=== PATIENT | female | born 1965 | race Caucasian/White ===

== ENCOUNTER 2022-09-28 08:54 | Outpatient (OUT) | payer OTHER, SELFPAY ==
--- NOTE | 2022-09-28 08:59 | ECG_ITS ---
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
[2022-09-28 10:22] LABS: Basophils Absolute Auto 0.1 10^3/uL (0.0-0.1); Basophils Percent Auto 1.1 % (0.2-2.0); Eosinophils Absolute Auto 0.2 10^3/uL (0.0-0.7); Eosinophils Percent Auto 2.7 % (0.9-7.0); Hemoglobin 13.1 g/dL (12.0-16.0); Immature Granulocytes Abs Auto 0.01 10^3/uL (0.00-0.03); Immature Granulocytes Pct Auto 0.2 % (0.0-0.5); Lymphocytes Absolute Auto 1.6 10^3/uL (1.2-3.8); Lymphocytes Percent Auto 29.1 % (20.5-60.0); Mean Corpuscular HGB Conc 32.8 g/dL (29.9-35.2); Mean Corpuscular Hemoglobin 28.7 pg (26.7-34.0); Mean Corpuscular Volume 87.7 fL (81.0-99.0); Mean Platelet Volume 10.6 fL (9.5-13.5); Monocytes Absolute Auto 0.3 10^3/uL (0.3-0.8); Monocytes Percent Auto 5.7 % (1.7-12.0); Neutrophils Absolute Auto 3.3 10^3/uL (1.4-6.5); Neutrophils Percent Auto 61.2 % (43.0-75.0); Platelet Count 228 10^3/uL (150-450); Red Blood Count 4.56 10^6/uL (4.20-5.40); White Blood Count 5.5 10^3/uL (4.0-11.0)
[2022-09-28 10:39] LABS: INR 0.97; Partial Thromboplastin Time 25.2 sec (22.3-36.2); Prothrombin Time 10.3 sec (9.0-11.6)
== END 2022-09-28 08:55 | disposition home or self-care (01) ==
PROVIDERS: Otolaryngology; PCP Internal Medicine
DX: Z01.812 Encounter for preprocedural laboratory examination (principal); Z01.810 Encounter for preprocedural cardiovascular examination; J34.2 Deviated nasal septum; J34.3 Hypertrophy of nasal turbinates; J34.89 Other specified disorders of nose and nasal sinuses
CPT/HCPCS: 85025; 85610; 85730; 93005

== ENCOUNTER 2022-09-28 12:30 | Emergency (ER) | payer OTHER, SELFPAY ==
--- NOTE | 2022-09-28 12:46 | ECG_ITS ---
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
--- NOTE | 2022-09-28 12:50 | ED_ITS ---
HPI - General Adult General Chief complaint: Recheck/Abnormal Lab/Rx Stated complaint: SENT OVER BY DR CANCHOLA Time Seen by Provider: 09/28/22 12:46 History of Present Illness HPI narrative: Patient is a 57-year-old female who is presenting to the Emergency Room. The recommendation Dr. canchola because of abnormal EKG Testing. Patient was noted to have T-wave inversion in the precordial leads. Patient was sent to the Emergency Room by PCP Dr. canchoal to have cardiac testing. Patient is completely asymptomatic. Patient has a brother in his 50s a had a heart attack. Patient is a nonsmoker, no cocaine use. Patient takes no medication for cholesterol, diabetes, or blood pressure. Patient is asymptomatic. Patient is due to have sinus surgery next Wednesday by Dr. Canchola. Patient is only here because her PCP told her to come to the Emergency Room for evaluation. . All systems are negative except as noted/marked. All systems reviewed and otherwise negative. . Nurses note and vital signs reviewed and patient is not hypoxic. General: The patient appears well and in no apparent distress. Patient is resting comfortably on cart. Patient is not toxic, lethargic, or listless Skin: Warm, dry, no pallor noted. There is no rash noted. No petechiae, purpura. Head: Normocephalic, atraumatic Eye: Normal conjunctiva, no drainage, EOMI. PERRL Ears, Nose, Mouth, and Throat: oral mucosa is moist. Nares patent. Mouth without vesicles. Cardiovascular: Regular Rate and Rhythm, no murmur, gallop, rub Respiratory: Patient is in no distress, no accessory muscle use, lungs are clear to auscultation, no wheezing, rales or rhonchi Back: non-tender, GI: soft, no tenderness Musculoskeletal: Patient has full range of motion of all of the extremities, no motor, sensory, or focal neurological deficits Neurological: A&O x3, normal speech Psychiatric: Cooperative Related Data Home Medications Medication Instructions Recorded Confirmed alprazolam 1 mg tablet 1 mg PO TID 09/28/22 09/28/22 cetirizine 10 mg tablet (24Hour 5 mg PO DAILY 09/28/22 09/28/22 Allergy) fluticasone furoate 27.5 2 spray intranasal DAILY 09/28/22 09/28/22 mcg/actuation nasal spray,suspension (Flonase Sensimist) hydroxyzine pamoate 25 mg capsule 25 mg PO .Q12 09/28/22 09/28/22 lansoprazole 30 mg capsule,delayed 30 mg PO DAILY 09/28/22 09/28/22 release (Prevacid) lisinopril 10 mg tablet 10 mg PO BID 09/28/22 09/28/22 pravastatin 40 mg tablet 20 mg PO .EVERY EVENING 09/28/22 09/28/22 sucralfate 1 gram tablet 1 g PO DAILY PRN GASTRITIS 09/28/22 09/28/22 Allergies Allergy/AdvReac Type Severity Reaction Status Date / Time No Known Drug Allergies Allergy Verified 09/28/22 09:19 [facility] Medical History (Updated 09/28/22 @ 15:05 by Stanislaw Sims MD) Surgical History (Updated 09/28/22 @ 09:39 by Karla Sweet) Family History (Updated 09/28/22 @ 09:41 by Karla Sweet) Other Family history of diabetes mellitus Family history of myocardial infarction Family history of prostate cancer Family history of stroke Myeloma Social History (Updated 09/28/22 @ 09:33 by Karla Sweet) Within the past year, how often did you have a drink containing alcohol: 2-4 times a month Within the past year, how many standard drinks containing alcohol did you have on a typical day: 3 or 4 Smoking status: Never smoker Non-prescribed substance use: denies use 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 Highest level of school completed/degree received: Bachelor's degree Exam Constitutional Vital Signs, click to edit/add: Last Vital Signs Temp 97.6 F 09/28/22 13:04 Pulse 63 09/28/22 13:04 Resp 16 09/28/22 13:04 BP 141/94 H 09/28/22 13:04 Pulse Ox 98 09/28/22 13:04 O2 Del Method Nasal Cannula 09/28/22 13:04 Course Vital Signs Vital signs: Vital Signs Temperature 97.6 F 09/28/22 13:04 Pulse Rate 63 09/28/22 13:04 Respiratory Rate 16 09/28/22 13:04 Blood Pressure 141/94 H 09/28/22 13:04 Pulse Oximetry 98 09/28/22 13:04 Oxygen Delivery Method Nasal Cannula 09/28/22 13:04 Temperature 97.6 F 09/28/22 13:04 Pulse Rate 63 09/28/22 13:04 Respiratory Rate 16 09/28/22 13:04 Blood Pressure 141/94 H 09/28/22 13:04 Pulse Oximetry 98 09/28/22 13:04 Oxygen Delivery Method Nasal Cannula 09/28/22 13:04 Medical Decision Making MDM Narrative Medical decision making narrative: Patient chest x-ray and lab work showed no acute findings. Patient does have T- wave inversion noted to the precordial leads, patient is completely asymptomatic. Patient is discharged. I did speak to Dr. canchola after test results and discharge. Patient is hoping that her sinus surgery is not canceled Wednesday. Dr. canchola will perform additional cardiac testing is needed. No questions at discharge. Patient may commentts that nobody had updated her on her test results, or the nature of the Emergency Room volume since she returned back from x-ray. Blameless apologies were given. Patient was very pleasant. Lab Data Lab results reviewed: Yes I reviewed the patient's lab results Labs: Lab Results 09/28/22 Range/Units 12:00 WBC 7.0 (4.0-11.0) 10^3/uL RBC 4.90 (4.20-5.40) 10^6/uL Hgb 14.1 (12.0-16.0) g/dL Hct 42.4 (36.0-48.0) % MCV 86.5 (81.0-99.0) fL MCH 28.8 (26.7-34.0) pg MCHC 33.3 (29.9-35.2) g/dL RDW 12.1 (11.0-15.0) % Plt Count 277 (150-450) 10^3/uL MPV 10.9 (9.5-13.5) fL Neut % (Auto) 56.0 (43.0-75.0) % Lymph % (Auto) 33.9 (20.5-60.0) % [place] % (Auto) 5.9 (1.7-12.0) % Eos % (Auto) 3.0 (0.9-7.0) % Baso % (Auto) 0.9 (0.2-2.0) % Neut # (Auto) 3.9 (1.4-6.5) 10^3/uL Lymph # (Auto) 2.4 (1.2-3.8) 10^3/uL [place] # (Auto) 0.4 (0.3-0.8) 10^3/uL Eos # (Auto) 0.2 (0.0-0.7) 10^3/uL Baso # (Auto) 0.1 (0.0-0.1) 10^3/uL Abs Immat Gran (auto) 0.02 (0.00-0.03) 10^3/uL Imm/Tot Granulo (auto) 0.3 (0.0-0.5) % Sodium 137 (136-145) mmol/L Potassium 3.5 (3.5-5.1) mmol/L Chloride 103 (98-107) mmol/L Carbon Dioxide 30.4 (21.0-32.0) mmol/L Anion Gap 7.1 BUN 11.0 (7.0-18.0) mg/dL Creatinine 0.81 (0.55-1.02) mg/dL Est GFR ( Amer) >60 (>=60) Est GFR (Non-Af Amer) >60 (>=60) BUN/Creatinine Ratio 13.6 Glucose 100 (74-106) mg/dL Calcium 9.1 (8.5-10.1) mg/dL Total Bilirubin 0.3 (0.2-1.0) mg/dL AST 17 (15-37) U/L ALT 25 (14-59) U/L Alkaline Phosphatase 111 (46-116) U/L Troponin I High Sens 31.6 (4.0-51.3) pg/mL NT-Pro-B Natriuret Pep 145.0 (<=900.0) pg/mL Total Protein 8.2 (6.4-8.2) g/dL Albumin 4.2 (3.4-5.0) g/dL Globulin 4.0 g/dL Albumin/Globulin Ratio 1.0 ECG Data Attestation: I personally reviewed and interpreted this ECG as follows: Interpretation: EKG interpretation. Sinus bradycardia of 46 beats a minute. Normal axis deviation. PVC noted. Nonspecific ST changes, T-wave inversion in V4, V5, QTC of 375. Discharge Plan Discharge Chief Complaint: Recheck/Abnormal Lab/Rx Clinical Impression: Acute electrocardiogram changes Patient Disposition: Home, Self-Care Condition: Good Mode of Transportation: Private Vehicle Prescriptions / Home Meds: No Action lisinopril 10 mg tablet 10 mg PO BID sucralfate 1 gram tablet 1 g PO DAILY PRN (Reason: GASTRITIS) pravastatin 40 mg tablet 20 mg PO .EVERY EVENING hydroxyzine pamoate 25 mg capsule 25 mg PO .Q12 cetirizine [24Hour Allergy] 10 mg tablet 5 mg PO DAILY Flonase Sensimist 27.5 mcg/actuation spray,suspension 2 spray intranasal DAILY Rx Instructions: into each nostril alprazolam 1 mg tablet 1 mg PO TID lansoprazole [Prevacid] 30 mg capsule,delayed release(DR/EC) 30 mg PO DAILY Instructions: Electrophysiology Study (DC) Additional Instructions: follow-up with Dr. Canchola for additional outpatient testing . A copy of her EKG was given to you. Stand Alone Forms: Portal Instructions Referrals: Ulysses Canchola DO [Primary Care Provider] - 1 week Discharge Date/Time: 09/28/22 15:16
[2022-09-28 13:04] VITALS: BP 141/94; PULSE 63; RESP 16; TEMP 36.4; O2SAT 98; BMI 30.7
[2022-09-28 13:07] LABS: Basophils Absolute Auto 0.1 10^3/uL (0.0-0.1); Basophils Percent Auto 0.9 % (0.2-2.0); Eosinophils Absolute Auto 0.2 10^3/uL (0.0-0.7); Hematocrit 42.4 % (36.0-48.0); Hemoglobin 14.1 g/dL (12.0-16.0); Immature Granulocytes Abs Auto 0.02 10^3/uL (0.00-0.03); Immature Granulocytes Pct Auto 0.3 % (0.0-0.5); Lymphocytes Absolute Auto 2.4 10^3/uL (1.2-3.8); Lymphocytes Percent Auto 33.9 % (20.5-60.0); Mean Corpuscular HGB Conc 33.3 g/dL (29.9-35.2); Mean Corpuscular Hemoglobin 28.8 pg (26.7-34.0); Mean Corpuscular Volume 86.5 fL (81.0-99.0); Mean Platelet Volume 10.9 fL (9.5-13.5); Monocytes Absolute Auto 0.4 10^3/uL (0.3-0.8); Monocytes Percent Auto 5.9 % (1.7-12.0); Neutrophils Absolute Auto 3.9 10^3/uL (1.4-6.5); Platelet Count 277 10^3/uL (150-450); Red Cell Distribution Width 12.1 % (11.0-15.0)
--- NOTE | 2022-09-28 13:11 | XR_ITS ---
The [address] [address] Patient Name: SIERRA GONZALES MRN: [id number] date: 1965 Sex: F Assigned Patient Location: ER Current Patient Location: ER Accession/Order Number: [id number] Exam Date: 09/28/2022 13:25 Report Date: 09/28/2022 13:54 At the request of: FERNANDEZ PRABHAKAR Procedure: XR chest 2V EXAMINATION: XR chest 2V HISTORY: possible abnormal ekg ; presurgical testing, abnormal EKG COMPARISON: No relevant comparison available. FINDINGS: LUNGS: No significant pulmonary parenchymal abnormalities. VASCULATURE: No increased pulmonary vasculature. PLEURA: No pneumothorax, effusion, or pleural thickening. CARDIAC: No cardiomegaly or cardiac silhouette abnormality. MEDIASTINUM: No visible mass or adenopathy. BONES: No fracture or visible bone lesion. OTHER: Negative. XR/XR chest 2V IMPRESSION: 1. Normal chest x-ray. Electronically authenticated by: MICKI ORTEGA Date: 09/28/2022 13:54
[2022-09-28 13:28] LABS: Alanine Aminotransferase 25 U/L (14-59); Albumin Level 4.2 g/dL (3.4-5.0); Alkaline Phosphatase 111 U/L (46-116); Anion Gap 7.1; Aspartate Amino Transferase 17 U/L (15-37); BUN Creatinine Ratio 13.6; Bilirubin Total 0.3 mg/dL (0.2-1.0); Calcium 9.1 mg/dL (8.5-10.1); Carbon Dioxide 30.4 mmol/L (21.0-32.0); Chloride 103 mmol/L (98-107); Estimated GFR (African America >60 (>=60); Estimated GFR (Non-African Ame >60 (>=60); Glucose 100 mg/dL (74-106); Potassium 3.5 mmol/L (3.5-5.1); Sodium 137 mmol/L (136-145); Total Protein 8.2 g/dL (6.4-8.2)
[2022-09-28 13:35] LABS: Troponin I High Sensitivity 31.6 pg/mL (4.0-51.3)
== END 2022-09-28 15:16 | disposition home or self-care (01) ==
PROVIDERS: Emergency Provider Emergency Medicine; PCP Internal Medicine
DX: Z01.812 Encounter for preprocedural laboratory examination (principal); Z01.810 Encounter for preprocedural cardiovascular examination; J34.2 Deviated nasal septum; J34.3 Hypertrophy of nasal turbinates; J34.89 Other specified disorders of nose and nasal sinuses; R94.31 Abnormal electrocardiogram [ECG] [EKG]; Z79.899 Other long term (current) drug therapy
CPT/HCPCS: 36415; 71046; 80048; 80053; 83880; 84484; 85025; 85610; 85730; 93005; 99285

== ENCOUNTER 2022-10-01 10:51 | Outpatient (OUT) | payer OTHER, SELFPAY ==
--- NOTE | 2022-10-01 10:45 | NM_ITS ---
Patient: SIERRA GONZALES Exam Date: 10/01/2022 : 1965 Gender:F Ordering : DR GIRISH CANCHOLA D.O. Admission #: [id number] Family : DR PUJA MOREJON M.D. Order #: [id number] CLICK HERE TO VIEW EXAM RADIOLOGY REPORT PROCEDURE: NM YUDELKA PERF SPECT REST STR COMPARISON: None. INDICATIONS: ABNORMAL EKG, PRE-PROCEDURE CARDIOVASCULAR EXAM, HYPERTENSION, FAMILY HISTORY OF CORONARY ARTERY DISEASE TECHNIQUE: Exam Description: Stress/Rest one day protocol gated SPECT Rest Imagin.5 mCi Tc-99m Cardiolite IV on 10/01/2022 Stress Imaging 30.3 mCi Tc-99m Cardiolite IV on 10/01/2022 Exercise Protocol: 0.4 mg Lexiscan given IV Heart Rate (bpm): Rest: 64 Max: 114 PMHR: 69 Blood Pressure: Rest: 148/86 Max: 184/82 Symptoms: Rest and peak stress ECG findings were abnormal and the exercise portion of the study was Non-diagnostic per attending physician Dr. Emigdio Canchola . For more details please see separate cardiac stress test report. FINDINGS: QUALITY OF STUDY: Excellent. PERFUSION DEFECT: None. LOCATION: N/A SIZE: N/A. SEVERITY: N/A. TYPE: N/A. WALL MOTION: Normal. LV SIZE: Normal. 110 mL. TID / TCD: None; 0.8 LVEF: Normal. Calculated EF 64%. SUMMARY: Myocardial perfusion imaging study is NORMAL. CONCLUSION: 1. Normal nuclear medicine myocardial perfusion scan. 2. Nondiagnostic exercise portion of the study. Please see Dr. Emigdio Canchola's report. Dictated by: Tyler Flood M.D. on 10/01/2022 at 15:19 Approved by: Tyler Flood M.D. on 10/01/2022 at 15:22
--- NOTE | 2022-10-01 10:51 | PCN_ITS ---
CARDIAC STRESS TEST ? Requesting Physician:? Procedure Date:? 10/01/2022 ? I.? General information: ? A.? This was a Lexiscan stress test. B.? Cardiac history and risk factors:? This is a 57-year-old patient with no personal history of coronary disease. She has a strong family history with parents and siblings with coronary artery disease.? Primary risk factors include essential hypertension and hyperlipidemia. ? II.? Resting 12 lead electrocardiogram reveals sinus rhythm with a ventricular rate of 64 beats per minute, a AL interval of 0.20, QRS 0.10 and QT 0.40, all within normal limits.? The patient had slight intraventricular conduction delay noted, no pathologic Q waves and non-specific ST-T wave changes with asymmetric T-wave inversions in the inferior limb leads of 2, 3, AVF, as well as the lateral precordial leads of V3 through V6. ? III.? Stress test: ? A.? Protocol:? This is a Lexiscan stress test. ? B.? Exercise capacity was non-applicable. C.? Heart rate and blood pressure response:? The heart rate increased with a decrease in blood pressure, which is appropriate for Lexiscan infusion. D.? ST response:? The patient had ST ?T wave changes at baseline, making it uninterpretable during Lexiscan infusion. E.? Patient response:? Patient denied chest pain during Lexiscan infusion. ? IV:? Interpretation:? This is a non-diagnostic Lexiscan stress test due to ST-T wave changes at baseline.? Cardiolite was injected with Cardiolite images and interpretation pending. ? [facility]
[2022-10-01] MEDS: REGADENOSON 0.4 MG/5 ML SYRINGE IV (13:24)
== END 2022-10-01 10:52 | disposition home or self-care (01) ==
LOC: NM 10:51
PROVIDERS: PCP Internal Medicine; Visit Provider Internal Medicine
DX: R94.31 Abnormal electrocardiogram [ECG] [EKG] (principal); I10 Essential (primary) hypertension; Z82.49 Family history of ischemic heart disease and other diseases of the circulatory system
CPT/HCPCS: 78452; 93017; A9500; J2785

== ENCOUNTER 2022-10-06 09:39 | Day surgery (SDC) | payer OTHER, SELFPAY ==
[2022-09-28 09:34] VITALS: BP 110/73; PULSE 64; RESP 16; TEMP 36.1; O2SAT 98; BMI 30.7
[2022-10-06] VITALS (19 sets, daily range): BP systolic 158–198; BP diastolic 78–109; PULSE 57–71; RESP 14–18; TEMP 36.2–36.3; O2SAT 92–99; BMI 30.4
--- NOTE | 2022-10-06 | OP_ITS ---
OPERATION DATE: ??10/06/2022 PRIMARY CARE PHYSICIAN:? Dr. Emigdio Barger SURGEON:? Shalini Canchola M.D. PREOPERATIVE DIAGNOSIS:? Deviated nasal septum, bilateral inferior turbinate hypertrophy and left nena bullosa. POSTOPERATIVE DIAGNOSIS:? Deviated nasal septum, bilateral inferior turbinate hypertrophy and left nena bullosa. PROCEDURE:? Septoplasty, bilateral inferior turbinate submucosal resection and removal of left nena bullosa. ANESTHESIA:? General endotracheal. COMPLICATIONS:? None. FINDINGS:? Left nena bullosa, bilateral inferior turbinate hypertrophy and deviated nasal septum to the right. INDICATIONS:? This 57-year-old woman presents with chronic nasal obstruction unresponsive to aggressive medical management due to the above findings. PROCEDURE:? Patient identified in the holding area and taken back to the OR where she was placed in a supine position.? After induction of general endotracheal anesthesia, the table was turned, the head elevated 20 degrees and the face draped in a sterile fashion.? Afrin soaked pledgets were placed in the nose and, after waiting adequate time for decongestion, the nose was copiously irrigated.? The left nose was then approached with the nasal endoscope and lidocaine 1% with 1:100,000 epinephrine injected into the left nena bullosa and the right inferior turbinate.? After waiting adequate time for hemostasis, the left nose was again approached with the nasal endoscope.? A curved scissor to the right was used to incise the nena bullosa and it was removed with an ethmoid forcep.? The posterior root of the middle turbinate was prophylactically cauterized to minimize the risk of postoperative bleeding.? The left inferior turbinate and the nasal septum then injected with lidocaine 1% with 1:100,000 epinephrine.? Attention was turned to the right inferior turbinate.? A stab incision was made anteriorly and a caudal elevator used to create a tunnel along the medial surface of the turbinate bone.? A 2.0 mm microdebrider was then used to exenterate the submucosal tissues of the turbinate and the turbinate was outfractured with the long nasal speculum.? Attention was turned to the left inferior turbinate and the same procedure performed.? Attention was then turned to the septum.? A left sided Tomer incision was made and the mucoperichondrial and mucoperiosteal flap was elevated on the left hand side with a caudal elevator.? The bony cartilaginous junction was and the mucoperiosteal flap was elevated on the right hand side.? The bony septum was then removed using cutting and grabbing Genoveva forceps, including a large septal spur to the right.? Inferiorly, the cartilaginous septum was noted to be deflected to the left, and this was trimmed to allow the septum to lay more freely in the midline.? A greater than 1 cm anterior strut was preserved to minimize the risk of tip support loss.? Both sides of the nose and the septal flap were then copiously irrigated with normal saline.? The [place] incision was closed with a 5-0 chromic suture, and bilateral ventilating silastic splints were coated with antibiotic ointment and placed in the nose.? The splints were sutured in place using a 2-0 nylon transseptal stitch.? The patient was then awakened and taken to the recovery room in good condition. [facility]LE[facility]
[2022-10-06] MEDS: LACTATED RINGER'S SOLUTION 1,000 ML 50 ML IV (10:13)
[2022-10-06] MEDS: LIDOCAINE HCL 1%-EPINEPHRINE 1:100,000 20 ML MDV INJ (11:45)
[2022-10-06] MEDS: BACITRACIN OINTMENT 28.4 GM TUBE 1 APPLIC TOPICAL (12:18)
[2022-10-06] MEDS: HYDROMORPHONE HCL 0.5 MG/0.5 ML SYRINGE IV ×2 (12:40→12:49)
--- NOTE | 2022-10-06 13:12 | PC.NURSE ---
DR. PAYAN AWARE OF ELEVATED BLOOD PRESSURES WITH PATIENT, AWAITING ORDERS AT THIS TIME
--- NOTE | 2022-10-06 13:17 | PC.NURSE ---
DR. PAYAN NOTIFIED AGAIN OF ELEVATED BLOOD PRESSURES. ORDER FOR HYDRALAZINE PUT IN AT THIS TIME BY DR. PAYAN
[2022-10-06] MEDS: HYDRALAZINE HCL 20 MG/ML VIAL 5 MG IVP (13:20)
== END 2022-10-06 14:45 | disposition home or self-care (01) ==
PROVIDERS: PCP Internal Medicine; Visit Provider Otolaryngology
PROC: (CPT 30140; principal; 2022-10-06 10:40)
DX: J34.2 Deviated nasal septum (principal); J34.3 Hypertrophy of nasal turbinates; J34.89 Other specified disorders of nose and nasal sinuses; Z79.899 Other long term (current) drug therapy; I10 Essential (primary) hypertension; K21.9 Gastro-esophageal reflux disease without esophagitis; E78.5 Hyperlipidemia, unspecified; Z90.49 Acquired absence of other specified parts of digestive tract
CPT/HCPCS: 30140; 30520; 31240; 36415; 88304; 88305; 88311; J1170; J2704

== ENCOUNTER 2023-04-30 06:47 | Outpatient (OUT) | payer OTHER, SELFPAY ==
--- NOTE | 2023-04-30 06:50 | MM_ITS ---
Patient Name: SIERRA GONZALES MR#: [id number] : 1965 Exam Date: 04/30/2023 Ordering Doctor: Non-Staff Physician RADIOLOGY REPORT PROCEDURE: MM TOMOSYNTHESIS SCREENING BI COMPARISON: MG MAMM SCREEN 3D GUSTAVO CAD, 03/16/2022. MG MAMM SCREEN 3D GUSTAVO CAD, 10/09/2020. INDICATIONS: Screening Calculator Name NCI Breast Cancer Risk Assessment Tool 5 Year Breast Cancer Risk 1.40% Lifetime Breast Cancer Risk 8.70% Personal Breast Cancer No Personal Ovarian Cancer No Treatments None Family Cancers Mother with multiple myel. cancer at age 76; Father with prostate cancer at age 72; Sister with cervical cancer at age ~28. LOCATION: [facility] BREAST COMPOSITION: Heterogeneously dense,which may obscure small masses. FINDINGS: DIAGNOSTIC CATEGORY 2--BENIGN FINDING. NO CHANGE FROM COMPARISON. Scattered benign-appearing calcifications are present. Scattered benign-appearing lymph nodes are present. RIGHT BREAST: No significant suspicious finding. LEFT BREAST: No significant suspicious finding. RECOMMENDATIONS: ROUTINE MAMMOGRAM AND CLINICAL EVALUATION IN 12 MONTHS. PLEASE NOTE: A NORMAL MAMMOGRAM DOES NOT EXCLUDE THE POSSIBILITY OF BREAST CANCER. A CLINICALLY SUSPICIOUS PALPABLE LUMP SHOULD BE BIOPSIED. Dictated by: Babar Brunner MD on 04/30/2023 at 08:17 Approved by: Babar Brunner MD on 04/30/2023 at 08:22
== END 2023-04-30 06:48 | disposition home or self-care (01) ==
LOC: MAMMO 06:47
PROVIDERS: PCP Internal Medicine
DX: Z12.31 Encounter for screening mammogram for malignant neoplasm of breast (principal); Z80.7 Family history of other malignant neoplasms of lymphoid, hematopoietic and related tissues; Z80.42 Family history of malignant neoplasm of prostate; Z80.8 Family history of malignant neoplasm of other organs or systems
CPT/HCPCS: 77063; 77067

== ENCOUNTER 2023-05-06 15:19 | Outpatient (REF) | payer OTHER, SELFPAY ==
--- OUTSIDE RECORDS SUMMARY | 2023-05-06 15:36 | XMS_ITS | CCD ---
Author Name Unknown Address [address] [place] [address] Organization [facility] Care Team Providers Care Nuclear Equipment Research Engineer Name Role Phone Ese Simental Unavailable Yao Bello Unavailable Ulysses Barger Unavailable ULYSSES BARGER Primary Care Physician Shalini Morejon Referring Unavailable Shalini Morejon Attending Unavailable Shalini Morejon Admitting Unavailable Laila KING Attending Unavailable CHARBEL, DR STOUT Primary Care Unavailable TIMMIEduardo, DR LUO Attending Unavailable TIMCHARISSA, DR LUO Admitting Unavailable CHARBEL, DR STOUT Consulting Unavailable CHARBEL, DR STOUT Primary Care Unavailable CHARBEL, DR STOUT Admitting Unavailable CHARBEL, DR STOUT Attending Unavailable WEST, DR ESE Car Consulting Unavailable HOGUEMERYL Consulting Unavailable CHARBEL, DR STOUT Primary Care Unavailable CHARBEL, DR STOUT Admitting Unavailable CHARBEL, DR STOUT Attending Unavailable CHARBEL, DR STOUT Consulting Unavailable JEAN-PIERRE, DR LUO Attending Unavailable TIMDEMARS, DR LUO Admitting Unavailable CHARBEL, DR STOUT Primary Care Unavailable SHALINI MOREJON Attending Unavailable Joni Gilbert Attending Unavailab Joni Dawson Admitting Unavailab Ulysses Irizarry Primary Care Unavailable Allergies Allergy Classification Reported Allergen(s) Allergy Type Date of Onset Reaction(s) Facility (4 sources) patient allergy list reviewed by nurse or physicia Propensity to adverse reactions 9 Comment:Done [employer] Other Medications Current Medications Medication Drug Class(es) Dates Sig (Normalized) Sig (Original) ALPRAZolam 1 mg oral tablet (13 sources) Benzodiazepine Start: 10-21-2022 take 1 tablet by mouth every eight hours ALPRAZolam 1 MG 1 tablet Orally TID for 90 days Sep, Active Start: 08-04-2018 take 1 tablet by yasmeen th every eight hours ALPRAZolam 1 MG 1 tablet Orally TID May, Active azithromycin 250 mg oral tablet (7 sources) Macrolide Antimicrobial Start: 02-03-2023 Azithromycin 250 MG as directed Orally daily for 5 days Jan, Active Start: 03-19-2022 Azithromycin 2 50 MG as directed Orally daily for 5 days Mar, Active celecoxib 200 mg oral capsule (1 source) Nonsteroidal Anti-inflammatory Drug Start: 08-10-2019 celecoxib 200 mg Cap Refills(s) 0 Start Date: 08/10/19 Status: Ordered cetirizine hydrochloride 10 mg oral tablet (16 sources) Histamine-1 Receptor Antagonist Start: 09-11-2022 take 1 tablet by mouth once daily ZyrTEC 10 MG 1 tablet Orally Once a day for 30 days Aug, Active Start: 07-20-2018 take 1 tablet by yasmeen once daily cetirizine 10 mg Tab 10 mg = 1 tab(s), Oral, Daily, Refills(s) 0 Start Date: 07/20/18 Status: Ordered Zyrtec OTC Activ e Estroven Nighttime oral tablet (Nutritional supplements) (1 source) Start: 07-20-2018 Estroven Nighttime oral tablet (Nutritional supplements) Estroven Nighttime oral tablet (Nutritional supplements), See Instructions Start Date: 07/20/18 Status: Ordered fluticasone propionate 0.05 mg/actuat metered dose nasal spray (7 sources) Corticosteroid Start: 09-11-2022 take 1 spray(s) nasal route once daily Flonase Allergy Relief 50 MCG/ACT 1 spray in each nostril Nasally Once a day for 30 days Aug, Active hydrocortisone 10 mg/ml / neomycin 3.5 mg/ml / polymyxin b 62543 unt/ml otic suspension (1 source) Aminoglycoside Antibacterial, Polymyxin-class Antibacterial, Corticosteroid Start: 02-03-2023 Neomycin-Polymyxin -HC [id number] 4 drops into affected ear Otic qid for 7 days Jan, Active lansoprazole 30 mg delayed release oral capsule (20 sources) Proton Pump Inhibitor Start: 03-04-2021 take 1 capsule by mouth every twenty-four hours Prevacid 30 MG 1 CAPSULE Orally Once a day for 30 day(s) PT WANTS PREVACID, NOT GENERIC Mar, Active Start: 07-20-2018 Prevacid Oral, Daily, Refills(s) 0 Start Date: 07/20/18 Status: Ordered take 1 capsule by [facility] once daily Prevacid 15 MG 1 capsule before a meal Orally Once a day OTC Active lisinopril 5 mg oral tablet (13 sources) Angiotensin Converting Enzyme Inhibitor Start: 07-20-2018 take 1 tablet by mouth twice daily lisinopril 5 mg Tab 5 mg = 1 tab(s), Oral, BID, Refills(s) 0 Start Date: 07/20/18 Status: Ordered Lisinopril 10 mg TAKE 1 TABLET TWICE A DAY Active 24 hr metoprolol succinate 25 mg extended release oral tablet (5 sources) beta-Adrenergic Megan Start: 10-02-2022 take 1 tablet by mouth every twenty-four hours Metoprolol Succinate ER 25 MG 1 tablet Orally Once a day for 90 days Sep, Active Singulair (1 source) Leukotriene Receptor Antagonist Start: 07-20-2018 Singulair Daily, Refills(s) 0 Start Date: 07/20/18 Status: Ordered POLYETHYLENE GLYCOL 3350 (8 sources) Osmotic Laxative MiraLax Active pravastatin sodium 10 mg oral tablet (13 sources) HMG-CoA Reductase Inhibitor Start: 08-10-2019 pravastatin 10 mg Ta b Refills(s) 0 Start Date: 08/10/19 Status: Ordered take 1 tablet by [facility] every twenty-four hours Pravastatin Sodium 20 MG 1 tablet Orally Once a day Active Psyllium (9 sources) Start: 07-20-2018 Metamucil Oral , Refills(s) 0 Start Date: 07/20/18 Status: Ordered Metamucil Active sucralfate 1000 mg oral tablet (12 sources) Aluminum Complex take 1 tablet by mouth every twelve hours Carafate 1 GM 1 tablet on an empty stomach Orally Twice a day for 90 days Active Problems Active Problems Problem Classification Problem Date Documented Date Episodic/Chronic Acute and chronic tonsillitis (16 sources) Amygdalolith; Translations: [Other chronic diseases of tonsils and adenoids] Onset: 8 Chronic Anxiety disorders (17 sources) Anxiety; Translations: [Generalized anxiety disorder] Onset: 3 08-04-2018 Chronic Cardiac dysrhythmias (3 sources) Multiple premature ventricular complexes; Translations: [Ventricular premature depolarization] Chronic Diabetes mellitus without complication (4 sources) Impaired fasting glycemia; Translations: [Impaired fasting glucose] Episodic Disorders of lipid metabolism (20 sources) Hypercholesterolemia; Translations: [Pure hypercholesterolemia, unspecified] Onset: 3 Chronic Esophageal disorders (13 sources) Gastroesophageal reflux disease; Translations: [Gastro-esophageal reflux disease without esophagitis] Onset: 2 Resolved: 2 Chronic Esophageal disorders (4 sources) Esophageal disorders; Translations: [Gastro-esophageal reflux disease with esophagitis, without bleeding] Onset: 8 Essential hypertension (17 sources) Hypertensive disorder; Translations: [Essential hypertension] 08-04-2018 Chronic Gastritis and duodenitis (4 sources) Atrophic gastritis; Translations: [Unspecified chronic gastritis without bleeding] Onset: 1 Chronic Gastritis and duodenitis (13 sources) Gastritis; Translations: [Gastritis, unspecified, without bleeding] Onset: 2 Resolved: 2 Episodic Genitourinary symptoms and ill-defined conditions (4 sources) Dysuria; Translations: [Dysuria] Episodic Headache; including migraine (8 sources) Tension-type headache; Translations: [Tension-type headache, unspecified, intractable] Onset: 4 Episodic Joint disorders and dislocations; trauma-related (4 sources) Chondromalacia of patella; Translations: [Chondromalacia of patella] Onset: 6 Chronic Melanomas of skin (4 sources) Malignant melanoma of skin; Translations: [Malignant melanoma of skin, unspecified] Onset: 7 Chronic Menopausal disorders (5 sources) Postmenopausal bleeding; Translations: [Postmenopausal bleeding] Onset: 8 Resolved: 9 08-04-2018 Chronic Mood disorders (12 sources) Recurrent major depressive episodes, mild ; Translations: [Major depressive disorder, recurrent, mild] Chronic Nausea and vomiting (9 sources) Nausea with vomiting, unspecified; Translations: [Nausea and vomiting] Onset: 4 Resolved: 2 Episodic Osteoarthritis (4 sources) Osteoarthritis of knee; Translations: [Bilateral primary osteoarthritis of knee] Chronic Other ear and sense organ disorders (1 source) Diffuse otitis externa, right ear Episodic Other gastrointestinal disorders (12 sources) Irritable bowel syndrome; Translations: [Irritable bowel syndrome without diarrhea] Chronic Other gastrointestinal disorders (4 sources) Irritable bowel syndrome characterized by constipation; Translations: [Irritable bowel syndrome with constipation] Chronic Other gastrointestinal disorders (4 sources) H/O: gastrointestinal disease; Translations: [Personal history of other diseases of the digestive system] Episodic Other nutritional; endocrine; and metabolic disorders (1 source) Hypocholesterolemia 08-04-2018 Chronic Other nutritional; endocrine; and metabolic disorders (11 sources) Body mass index 30+ - obesity; Translations: [Obesity, unspecified] Onset: 6 Chronic Other nutritional; endocrine; and metabolic disorders (4 sources) Obese class I; Translations: [Body mass index (BMI) 33.0-33.9, adult] Onset: 6 Chronic Other nutritional; endocrine; and metabolic disorders (4 sources) Simple obesity ; Translations: [Other obesity due to excess calories] Onset: 6 Chronic Other nutritional; endocrine; and metabolic disorders (4 sources) Overweight; Translations: [Overweight] Episodic Other screening for suspected conditions (not mental disorders or infectious disease) (3 sources) Encounter for screening mammogram for malignant neoplasm of breast; Translations: [Abnormal electrocardiogram [ECG] [EKG]] Onset: 3 Episodic Other upper respiratory disease (4 sources) Allergic rhinitis; Translations: [Allergic rhinitis, unspecified] Onset: 4 Chronic Other upper respiratory disease (4 sources) Seasonal allergic rhinitis; Translations: [Other seasonal allergic rhinitis] Chronic Other upper respiratory disease (1 source) Deviated nasal septum Episodic Other upper respiratory infections (20 sources) Chronic ethmoidal sinusitis; Translations: [Chronic ethmoidal sinusitis] Onset: 3 Chronic Other upper respiratory infections (6 sources) Acute pharyngitis due to other specified organisms; Translations: [Acute maxillary sinusitis] Episodic Residual codes; unclassified (4 sources) Obstructive sleep apnea syndrome; Translations: [Obstructive sleep apnea (adult) (pediatric)] Chronic Residual codes; unclassified (1 source) Family history of ischemic heart disease and other diseases of the circulatory system Episodic Spondylosis; intervertebral disc disorders; other back problems (4 sources) Low back pain; Translations: [Low back pain, unspecified] Episodic Viral infection (4 sources) Disease caused by 2019-nCoV; Translations: [COVID-19] Past or Other Problems Problem Classification Problem Date Documented Date Episodic/Chronic Acute bronchitis (4 sources) Acute bronchitis; Translations: [Acute bronchitis, unspecified] Onset: 02-15-2013 Episodic Allergic reactions (4 sources) Contact dermatitis; Translations: [Contact dermatitis and other eczema, due to unspecified cause] Onset: 02-15-2013 Episodic Bacterial infection; unspecified site (4 sources) Bacterial infectious disease; Translations: [Bacterial infection, unspecified, in conditions classified elsewhere and of unspecified site] Onset: 04-07-2018 Episodic Inflammation; infection of eye (except that caused by tuberculosis or sexually transmitteddisease) (4 sources) Acute atopic conjunctivitis; Translations: [Acute atopic conjunctivitis, bilateral] Onset: 06-20-2013 Episodic Noninfectious gastroenteritis (4 sources) Non-infective enteritis and colitis; Translations: [Noninfective gastroenteritis and colitis, unspecified] Onset: 05-03-2013 Episodic Other connective tissue disease (4 sources) Pain in forearm; Translations: [Pain in joint, forearm] Onset: 06-10-2018 Episodic Other non-traumatic joint disorders (4 sources) Knee joint effusion; Translations: [Effusion, unspecified knee] Onset: 05-22-2015 Episodic Other non-traumatic joint disorders (4 sources) Arthralgia of the lower leg; Translations: [Pain in joint, lower leg] Onset: 05-22-2015 Episodic Other non-traumatic joint disorders (4 sources) Arthralgia of the pelvic region and thigh; Translations: [Pain in joint, pelvic region and thigh] Onset: 12-24-2016 Episodic Other skin disorders (4 sources) Actinic keratosis; Translations: [Actinic keratosis] Onset: 05-31-2014 Episodic Residual codes; unclassified (1 source) Family history of other malignant neoplasms of lymphoid, hematopoietic and related tissues; Translations: [FAM HX OTH MAL RICO LYMPH HEMATPOETC] Onset: 03-21-2022 Episodic Residual codes; unclassified (1 source) Family history of malignant neoplasm of other genital organs; Translations: [FAM HX MALIG NEOPLSM OTH GENIT ORGN] Onset: 03-21-2022 Episodic Residual codes; unclassified (1 source) Family history of malignant neoplasm of prostate; Translations: [FAMILY HX MALZULY NEOPLASM PROSTATE] Onset: 03-21-2022 Episodic Residual codes; unclassified (4 sources) Sleep disorder; Translations: [Persistent disorder of initiating or maintaining sleep] Onset: 10-13-2017 Episodic Sprains and strains (4 sources) Sprain of radiocarpal ligament; Translations: [Sprain of radiocarpal joint of left wrist, initial encounter] Onset: 06-10-2018 Episodic Superficial injury; contusion (8 sources) Contusion of left elbow; Translations: [Contusion of left elbow, subsequent encounter] Onset: 06-10-2018 Episodic Unclassified (1 source) Onset: 10-18-1991 Resolved: 07-03-1992 08-04-2018 Urinary tract infections (8 sources) Urinary tract infectious disease; Translations: [Urinary tract infection, site not specified] Onset: 06-09-2017 Episodic Results Test Name Value Interpretation Reference Range Facil ity Coding Summary.on 07-01-2022 Coding Summary. CD:[id number] W w+PGhlYWQ+UR6ZEHVtU07 hwKLatL2wJ7QTYQiGEmfg EILXOKzRNmRtgnTdDH6tw XNjZXJu IC8+NM2wWRGmYfitfXImp 6U2lMQ6S25mxj5sLKnbkW N5JUUfJlJvbrcvb4whfZf 6IDcuNmluOyBt KYOgbC01CUY9wV46Uo22v OAmaWMzl3zrzVc1TtTjAV MsOIM6mXhcTDhre8VrMHS oT90vlONek6Y7 XLYtnFtotIWvYpBguAS1i G1yLNtcwiitb5vxztqcTv c9zt03wMXku8B3eQK7J0N cneY1XOGnhHOu KwyijDNRbC7aekzjx0lhe oesWdYeBYLkDVj6MQm3PC AdrOonHwCqJW58HZG8BKS rifGbU9VfPHZi sQhlVnM2d6R1If9JV0DKO ysuP7UDUHKJRJpqvDP+PC 25zw75I7FhXkghAxf6RHL nBUM1pGQ3fV8u JRWuVHqvv9G5fOU2O8Odf bLlse0mx8psGBRgZUjsS3 4jcMHcw6G0ULGcfLF9KQR tlKvzMqXvrW87 Oyc+YMXhzNhek9StJvbhe 1uxh0jltLj6PebgTJRlig MveOelOWS7e6XfGk2xHWR ruWL8mPB7yP4d SsJqXhX0HOuhT358HhRra IXxDsdlF41oI8LlzMQ+PH OcTiu8RTKiaUwwTH6xI1H hZGRpbmctbGVm lXslEW6uBWNyitkyAQLxq W1nTSZfC2j3SnPjGfG5GG flI8DuOYGxhvwyTp09qD3 eJrVmAoM7MOxk L5TbdcN6TPKofKOeUTmfH JT7K28ay7X2UDBvRKPiBI O9bJJ1kU8cnFwhmfhsnFL mdDsgdmVydGlj XHvwMLxpH867POKrwTxhV kNvZGluZyBEYXRlOiAgMD UvMDMvMjAyMzwvdGQ+PHR hXIA5vHysYOAb dKXzXIhdXq9nzFfgvZsvO M8xRMXacqsbLNJbfL3tEF EeaKTzyGzzKF1xAQAlwcd hj823IqYbGFG3 BTNxpKRpO7JfjK8iXwMnH KUeETGoI9VywCGwKMjvE9 64CKouXgR0SOSzbfOnT0O sLWFsaWduOiB0 d4A9Xc2Wi5ZhdlclX5Grh RHtMeLaFtjgLPz2Y0WdEq wvdHI+MG32PISbVF79IKc 6MXJ4vQonHSlk XHKdJ2SmoM2mQhLeMFWtK GRkOyc+PHRhYmxlIHdpZH RoPScxMDAlJyBzdHlsZT0 lAr1lXLJqREFx gCvfyBCmFqYmt6wjSQSuK SkwHW8byGfrS2YxpEN2ZR Mjb5j9Jh35N38fC1InrUW +MASwkVT6bWJ8 rM5oYyKxScW6WGlrD012P eXuvVWlEidpp2zgb4miyM q3UxV5JXCclvWznGxoVHQ 1k2DmBc94K32f IHdpZHRoPSIxNSUiIHZhb Rfysr3wcO9hRn8+PGNvbC D8uJM5wV7pFgZpWnH8OBl gR311McJveOVq Uhjmm9ash2fqlRl0ItDkW HFbogHqhZeaURO6c6TdJr 36M0FgaFphp5AfKlg0am7 5nUMys0B5pVZ1 E5MyBUFpqispgPIcuMvrQ Y0sATTpgsswWSFjgF2lEA DtL8l8AaPfYbE9YNebU7J mxvI1DMRxvFNx FSHwyVDEiJ8bjmauh9ept etuPdYcBSIvBNb7EGc0JU EvwNplPmHxLFX5MqS5PTP 0jQMxpY6nyAdi ovsccI4nGih+NOG8pJOhi VFAKJ3qOcojvUB+PHRkIH F3yXvkYUfuASXerP6bKNB gR3h0KyVhJfZ7 NKbgY6GteqP5RUZpdRKyZ JNrcRIWdF9ycgyxo9eibr duAtNhVNRkORr0MPk0NAS saWduOiBsZWZ0 GzP0FIO1mXIqoL3nwYyyk ojysM7zEjo+QmlydGggRG A4WYa3T6RwXtc0DJYngFe bWW4bxHFwUKlv Pt1xfVrolMonRL9oIYBmj yvez352CkZvc4dcPAIqlA RaHWybSDB3N90vu3Z4ZEO nTECoYWD0vHZ7 nJ7skNifeiojgBCcmJhuw nDxkJqtHKpcZFucI961FI SjqPhsWnLgXDx6S2MtAra 5KKHlvAzeFG2o qYVyIHtrZg8xmDcnxLnmM X8eYESmoyrcx502EaYxk7 srTUUucTHoNLovYBZ4H52 dj4M2SGXrBVNe SNA5xFT6xN7lcJvstdsyp GVmdDsgdmVydGljYWwtYW drF347KEAceAtlBxIibSr 3S7HfCoi5YASo rBmgTD0soEXfQVgpTa0nw RhbkJvpJQ7jQZTyrmmmu8 57EtWey6rlQHPmjBEgLQs mRUN1Y02yp6D2 VLZyJMVcWRI8rRX1sC2lh GlnbjogbGVmdDsgdmVydG muWAmoEJjmD154UWPugMw nPlBhdGllbnQg NOdlSAh8S6JdMhcofAD+P V90DKMqLZ61oZInyPOqi0 cixKx0KkOiDDLuJKK3gIk gHGjlx1DlVVBs N15whSKyd9H2VCHblQido BNjWtKwyFI0lA9uAFzhvu dzr7evucodSeksi1xwrp8 3lT82U42dKQve ZHRoPSIzMCUiIHZhbGlnb o3lvS8iKp7+ABKzmWD2aH I5dW8yOGRxDwH3EBxbR78 9InRvcCIvPjxj k6lix4mdtMn5HdA4ETWxl lUffZaiADH2i6SoJk90Y1 9sIHdpZHRoPSIyMCUiIHZ feJulng9tcM3u Ii8+AUCkwLB7tNV8oM2xA xFgAcO5SZxfR752BaOlqQ AgEgzsZ19dQ1RioMO+PHR yCbm3MUSywJom DD1juVMnMWtjAn1wJQQ6Q fJsXiDdNHfuO2WoTMDxpm fjluoxhTY5KRVtJMDcdM5 0Ky9noYaxDUVo jBMNpM2djhosh5slqkqwM hMxHOPfVYp5YVg4OPKqmK rxWqIkNAS4UfB1XGC0cEZ swQ5vmIxjldna jJ4rA9QiRBEpvekyPk45p U2qBiRiOxD0QPlsLkq+SV DLCqGbRMyLDjLOHA15LT9 4hYZjl7L4vKM9 Z2DhZDNhqkbhnatzjMQ5W PQcFRDmeE47sMJbPGlaWd 0kz2E7t496PWOeXCYjbD2 7Kr6ztIlmTHTe vPTCqV1xtihqn2cdxlbaU hShIOHyVSf1MAq9ZJSqtN caMlWjTKO3YdC4YBU5vAG vwK5iqAgtvzzf cM4uCsy+MQCbPnJxHGc7I zwvdGQ+QTNdIZL6qPjiGE zkTKLlkF8lTWGgF4c6VyY tEsP2QIbhF0Zi MNRcpnsmIo36cZ1fPbKeY aB2EMqwK3RahoX2CDYczR OgKWcfUUI9F18os8I0HZO jUIFvIKB7hPF6 fB7qeUwumekqhLIliDnmk rJjaDxuUYpwHGwrX225KD OuvMouJuN9NIvcYWVfLY1 8SZ13oQEyl7P4 tBU9V6OtOTRntrgnltkws TN8OCQeVBUkoP25eZHwGV viSs2ua9N1g265UJCnDDD rqM15Qh8ohQlj ZHNfiEXEoN6eseuoe9bgd zsyLyTyUIMnXUm2RXx4KV SuvHkzMqRkWZE5XwI4AML 5xTOpgG6giGus lfzogV9rTxj+RmVtYWxlP G46FH45wPXuk7I2gEH4Y8 CvWMGppivsxztzmGE1LLS mYZAbwJ10fGZx ZKkqPs8pm6M9w623NBEaS NPlkP26Ew4lsVwzYLXsvF YLsL8foozsk2faskakGcA eYKSsYEo8JHa8 UQTrqDmjBeXbTDP7WtZ7B LL1wNIyoW9xtBppequywZ 9wOyc+G3Z2rBV5mIWuoWb vdGQ+RB94hi79 L1ElKrlzMdt6FBVeDMF7q XI9jW7aHTFgATpnr3K0mU T9V8SewnQfis5vt3qtGFW kPNtaO89ovVIy h4N8DVUxpQS6GQYhhKbyW aVgsC72Hgp+PGNvbGdyb3 AeJrvab1fna6hexKy6RkY wJSIgdmFsaWdu BYJ9k2CwMu63N95hVJvuI HRoPSIzMCUiIHZhbGlnbj 7beF0cOa5+SORxzSX9jAX 0pE1eYnDtVjG9 ZTrlM094ZfEbrHZiDatsu 8xmr8katJa1WlFzICRtjo DsfLsgENR3p3SqOl17I3E yeBnkz1FfTfs6 uw21kGVug9W8hZW8N4NwK IUlkrticEWzeKkuPB7yVQ CvsxdoEQOdmH1rTDPiA6c 3VfKxRcL7ZWwu T0RkpdN6SRSzbXZkKQOli YMOhC6knrbsz2udeingIu UlKSGnNAd1COy4OAVkjSl bXoPaHKN3VbC6 BEK3eKGbsK3xzJessxjxx G9wOyc+SLb1f9grkGShSZ 1tcAR5LU33KU00iQHte1G 4aJL8N1PkALXt xhputonrgIT0KFUvDUBit V35Lm2peGhuAc1zAVKbNS O9INMsrYGxF1IbhH1jHkN rLSLfAASoB0Bl cLOqZZlvP534QSlhZuO7U ZLdkaOqN4DrSTKvoVjdCt A9o9O1Kv8JUV56IK64OS6 7pMNwf2V8jHQ4 R5KjYYRsvskgixxzvZR5O DEkJBZcgU10Hc9cwNbqKo 7xWCCnTFC4HPOilZVuV8Z lsD4xSlKfLONc FQGzX8JsfIWjCSaxZ002Z BhyYsC0CQBcusPcZ3WvFX RcrXhgTzC8n8J2Tk6TJb9 2EW19YR64xPZd b9R2dVE2S2JhAFDsijuwn ikfoRW9YWEdSZUzrV95Kw 7kbYyqUt4wHCIlQRK6PUU vvZOmS0AuhJ8u YlOmBOXeJHUlQ8DaqCAqV DbxF775RQyxFeQ1PANiay XfL5NrWCVjwYypGaE9p6I 3Fg4NIFryvut8 U2VkZcbxzFD+IH66OXShY H44aGQlyNOkr2pdwNr0Lp MsHCYwBPN1vQfuALfst7F wEZQuM17voFEd e2V7JLAp (more content not included)... Normal [facility] CT Maxillofacial w/o Contras ton 06-29-2022 CT Maxillofacial w/o Contrast Exam Date/Time: 06/26/2022 14:55 EDT Reason for Exam: J32.4 Report IMPRESSION: PARANASAL SINUS DISEASE DETAILED. Exam: CT Maxillofacial w/o Contrast History: Congestion. Sinus pressure. Technique: Multiple contiguous axial images were obtained of the maxillofacial bones without contrast. Multiplanar reformats were obtained. Comparison: None available Findings: Maxillary Sinuses: Clear. Ethmoid sinuses: Minimal mucosal thickening. Sphenoid sinuses: Clear. There is sphenoid pneumatization that extends inferior and posterior to the sella, resulting in a thin posterior bony margin of the clivus, consistent with sellar type pneumatization. Frontal sinuses: Clear. Right sphenoethmoidal recess: Clear. Left sphenoethmoidal recess: Clear. Right ostiomeatal complex and frontal recess: Clear. Left ostiomeatal complex and frontal recess: Clear. Nasal septum: Rightward deviation with spurring. Other: Keros type 2 olfactory fossa. Small right Onodi cell. No Josefina cells. Mastoid air cells & middle ears: Clear. The middle ears are unremarkable. Soft tissues & Brain: No acute abnormality identified. Orbital contents are within normal limits. All CT scans at this facility use dose modulation, iterative reconstruction, and/or weight based dosing when appropriate to reduce radiation dose to as low as reasonably Report achievable. Ordering Provider: Shalini Morejon FINAL REPORT Dictated: 06/29/2022 2:28 pm Henrik Lugo DO Signed (Electronic Signature): 06/29/2022 2:28 pm Signed by: Henrik Lugo DO Transcribed by: JEFERSON Technologist: LUCÍA [facility] Consent for Treatmenton 05-31 Consent for Treatment [id number]:127 Normal [facility] Physician Orderon 06-16-2022 Physician Order [id number] .[id number]:127 [facility] Physician Orderon 06-02-2022 Physician Order [id number] .[id number]:127 Normal [facility] CT SINUSES WO CONon 03-16-[address] SINUSES WO CON EXAMINATION: CT SINUSES WO CON HISTORY: Chronic sinusitis COMPARISON: None. TECHNIQUE: Noncontrast CT was obtained through the paranasal sinuses. Dose reduction techniques were achieved by using automated exposure control and/or adjustment of mA and/or kV according to patient size and/or use of iterative reconstruction technique. FINDINGS: Mucosal thickening of the bilateral maxillary sinuses. The left infundibulum is patent. Mucosal thickening occludes the right infundibulum. Mucosal thickening of the bilateral frontal sinuses inferiorly. The left frontal ethmoidal recess is patent. Right frontal ethmoidal recess is occluded. Opacification of several right. The left anterior ethmoid air cells. Mucosal thickening of the right sphenoid sinus. The right sphenoid ostium is occluded. The left sphenoid ostium is mildly narrowed. Rightward nasal septal deviation with rightward nasal septal spur contouring the right inferior turbinate. Pneumatization of the right and left optic struts. Posterior nasopharynx is unremarkable. Bilateral globes are normal. IMPRESSION: 1. Mild paranasal sinus disease most notably on the right as above. Electronically authenticated by: MOJGAN PATHAK Date: 2022-03-16 17:31 Normal [facility] MAMM SCREEN 3D GUSTAVO CADon 03-16-2022 MG MAMM SCREEN 3D GUSTAVO CAD Patient: SIERRA GONZALES Exam Date: 03/16/2022 : 1965 Gender:F Ordering : DR ULYSSES BARGER D.O. Admission #: [id number] Family : [employer] Order #: [id number] CLICK HERE TO VIEW EXAM RADIOLOGY REPORT PROCEDURE: MAMMOGRAM SCREENING 3D BILATERAL CAD COMPARISON: MG MAMM SCREEN GUSTAVO W CAD, 09/06/2019. MG MAMM SCREEN 3D GUSTAVO CAD, 10/09/2020. INDICATIONS: Screening mammography Calculator Name NCI Breast Cancer Risk Assessment Tool 5 Year Breast Cancer Risk 1.30% Lifetime Breast Cancer Risk 9.10% Personal Breast Cancer No Personal Ovarian Cancer No Treatments None Family Cancers Mother with multiple myel. cancer at age 76; Father with prostate cancer at age 72; Sister with cervical cancer at age 28. LOCATION: [facility] BREAST COMPOSITION: Heterogeneously dense,which may obscure small masses. FINDINGS: DIAGNOSTIC CATEGORY 1--NEGATIVE. NO CHANGE FROM COMPARISON ASSESSMENT. Scattered benign-appearing lymph nodes are present. Scattered benign-appearing calcifications are present. RIGHT BREAST: No significant suspicious finding. LEFT BREAST: No significant suspicious finding. RECOMMENDATIONS: ROUTINE MAMMOGRAM AND CLINICAL EVALUATION IN 12 MONTHS. PLEASE NOTE: A NORMAL MAMMOGRAM DOES NOT EXCLUDE THE POSSIBILITY OF BREAST CANCER. A CLINICALLY SUSPICIOUS PALPABLE LUMP SHOULD BE BIOPSIED. Dictated by: Ese Brunner MD on 03/17/2022 at 10:04 Approved by: Ese Brunner MD on 03/17/2022 at 10:07 Normal [facility] CBC AUTO DIFFon 10-16-2021 BASO # 0.1 103/ul Normal 0.0-0.1 [facility] Comment on above: Performed By: #### H FPFCBC #### [facility] [address] [place] [address] Dr. Salma Harris Basophils/100 WBC (Bld) 1.5 % Normal 0.2-2.0 [facility] Comment on above: Performed By: #### H FPFCBC #### [facility] [address] [place] [address] Dr. Salma Harris EO # 0.3 103/ul Normal 0.0-0.7 [facility] Comment on above: Performed By: #### H FPFCBC #### [facility] [address] [place] [address] Dr. Salma Harris Eosinophils/100 WBC (Bld) 5.0 % Normal 0.9-7.0 [facility] Comment on above: Performed By: #### H FPFCBC #### [facility] [address] [place] [address] Dr. Salma Harris Erythrocyte distribution width (RBC) [Ratio] 12.5 % Normal 11.0-15.0 [facility] Comment on above: Performed By: #### H FPFCBC #### [facility] [address] [place] [address] Dr. Salma Harris Hematocrit (Bld) [Volume fraction] 39.2 % Normal 36.0-48.0 [facility] Comment on above: Performed By: #### H FPFCBC #### [facility] [address] [place] [address] Dr. Salma Harris Hemoglobin (Bld) [Mass/Vol] 13.0 g/dL Normal 12.0-16.0 [facility] Comment on above: Performed By: #### H FPFCBC #### [facility] [address] [place] [address] Dr. Salma Harris IG # 0.01 10e3/ul Normal 0.00-0.03 [facility] Comment on above: Performed By: #### H FPFCBC #### [facility] [address] [place] [address] Dr. Salma Harris IG % 0.2 % Normal 0.0-0.5 [facility] Comment on above: Performed By: #### H FPFCBC #### [facility] [address] [place] [address] Dr. Salma Harris LYMPH # 2.2 103/ul Normal 1.2-3.8 [facility] Comment on above: Performed By: #### H FPFCBC #### [facility] [address] [place] [address] Dr. Salma Harris Lymphocytes/100 WBC (Bld) 41.3 % Normal 20.5-60.0 [facility] Comment on above: Performed By: #### H FPFCBC #### [facility] [address] [place] [address] Dr. Salma Harris MCH (RBC) [Entitic mass] 28.9 pg Normal 26.7-34.0 [facility] Comment on above: Performed By: #### H FPFCBC #### [facility] [address] [place] [address] Dr. Salma Harris MCHC (RBC) [Mass/Vol] 33.2 g/dL Normal 29.9-35.2 [facility] Comment on above: Performed By: #### H FPFCBC #### [facility] [address] [place] [address] Dr. Salma Harris MCV (RBC) [Entitic vol] 87.1 fL Normal 81.0-99.0 [facility] Comment on above: Performed By: #### H FPFCBC #### [facility] [address] [place] [address] Dr. Salma Harris MONO # 0.5 103/ul Normal 0.3-0.8 [facility] Comment on above: Performed By: #### H FPFCBC #### [facility] [address] [place] [address] Dr. Salma Harris Monocytes/100 WBC (Bld) 9.0 % Normal 1.7-12.0 [facility] Comment on above: Performed By: #### H FPFCBC #### [facility] [address] [address] [address] Salma Harris NEUT # 2.3 103/ul Normal 1.4-6.5 [facility] Comment on above: Performed By: #### H FPFCBC #### [facility] [address] [address] [address] Salma Harris Neutrophils/100 WBC (Bld) 43.0 % Normal 43.0-75.0 [facility] Comment on above: Performed By: #### H FPFCBC #### [facility] [address] [address] [address] Salma Harris Platelet mean volume (Bld) [Entitic vol] 11.8 fL Normal 9.5-13.5 [facility] Comment on above: Performed By: #### H FPFCBC #### [facility] [address] [address] [address] Salma Harris PLT 235 103/ul Normal 150-450 [facility] Comment on above: Performed By: #### H FPFCBC #### [facility] [address] [address] [address] Salma Harris RBC 4.50 106/ul Normal 4.20-5.40 [facility] Comment on above: Performed By: #### H FPFCBC #### [facility] [address] [address] [address] Salma Harris WBC 5.3 103/ul Normal 4.0-11.0 [facility] Comment on above: Performed By: #### H FPFCBC #### [facility] [address] [address] [address] Salma Harris [facility] PROFILEon 022 Albumin [Mass/Vol] 3.9 g/dL Normal 3.4-5.0 [facility] Comment on above: Performed By: #### H FPF #### [facility] [address] [address] [address] Salma Harris Albumin/Globulin [Mass ratio] 1.1 {ratio} Normal [facility] Comment on above: Performed By: #### H FPF #### [facility] [address] [address] [address] Salma Harris ALP [Catalytic activity/Vol] 100 U/L Normal 46-116 [facility] Comment on above: Performed By: #### H FPF #### [facility] [address] [address] [address] Salma Harris ALT [Catalytic activity/Vol] 24 U/L Normal 14-59 [facility] Comment on above: Performed By: #### H FPF #### [facility] [address] [address] [address] Salma Harris AST [Catalytic activity/Vol] 19 U/L Normal 15-37 [facility] Comment on above: Performed By: #### H FPF #### [facility] [address] [place] [address] Dr. Salma Harris Bilirubin [Mass/Vol] 0.6 mg/dL Normal 0.2-1.0 [facility] Comment on above: Performed By: #### H FPF #### [facility] [address] [address] [address] Salma Harris Calcium [Mass/Vol] 8.8 mg/dL Normal 8.5-10.1 [facility] Comment on above: Performed By: #### H FPF #### [facility] [address] [address] [address] Salma Harris Chloride [Moles/Vol] 103 mmol/L Normal 98-107 [facility] Comment on above: Performed By: #### H FPF #### [facility] [address] [address] [address] Salma Harris CHOL-HDL RATIO NORM SEE BELOW Normal [facility] Comment on above: Result Comment: 3.3 - 4.4 LOW RISK 4.4 - 7.1 AVERAGE RISK 7.1 - 11.0 MODERATE RISK >11.0 HIGH RISK Performed By: #### H FPF #### [facility] [address] [place] [address] Dr. Salma Harris Cholesterol [Mass/Vol] 207 mg/dL Critically high <=200 [facility] Comment on above: Performed By: #### H FPF #### [facility] [address] [address] [address] Salma Harris Cholesterol in HDL [Mass/Vol] 63 mg/dL Critically high 40-60 [facility] Comment on above: Performed By: #### H FPF #### [facility] [address] [address] [address] Salma Harris Cholesterol in LDL [Mass/Vol] 124.0 mg/dL Normal [facility] Comment on above: Performed By: #### H FPF #### [facility] [address] [address] [address] Salma Harris Cholesterol.total/C holesterol in HDL [Mass ratio] 3.3 {ratio} Normal [facility] Comment on above: Performed By: #### H FPF #### [facility] [address] [address] [address] Salma Harris CO2 [Moles/Vol] 26.4 mmol/L Normal 21.0-32.0 [facility] Comment on above: Performed By: #### H FPF #### [facility] [address] [address] [address] Salma Harris Creatinine [Mass/Vol] 0.79 mg/dL Normal 0.55-1.02 [facility] Comment on above: Performed By: #### H FPF #### [facility] [address] [address] [address] Salma Harris Globulin (S) [Mass/Vol] 3.4 g/dL Normal [facility] Comment on above: Performed By: #### H FPF #### [facility] [address] [address] [address] Salma Harris Glucose [Mass/Vol] 95 mg/dL Normal 74-106 [facility] Comment on above: Performed By: #### H FPF #### [facility] [address] [address] [address] Salma Harris HDL NORMAL > or = 60 mg/dl - LO W CARDIOVASCULAR RISK <40 mg/dl - HIGH CARDIOVASCULAR RISK Normal [facility] Comment on above: Performed By: #### H FPF #### [facility] [address] [address] [address] Salma Harris LDL CALC NORMAL SEE BELOW Normal [facility] Comment on above: Result Comment: <100 mg/dl OPTIMAL 100 - 129 mg/dl NEAR OR ABOVE OPTIMAL 130 - 159 mg/dl BORDERLINE HIGH 160 - 189 mg/dl HIGH >190 mg/dl VERY HIGH Performed By: #### H FPF #### [facility] [address] [address] [address] Salma Harris Potassium [Moles/Vol] 3.7 mmol/L Normal 3.5-5.1 [facility] Comment on above: Performed By: #### H FPF #### [facility] [address] [place] [address] Dr. Salma Harris Protein [Mass/Vol] 7.3 g/dL Normal 6.4-8.2 [facility] Comment on above: Performed By: #### H FPF #### [facility] [address] [address] [address] Salma Harris Sodium [Moles/Vol] 138 mmol/L Normal 136-145 [facility] Comment on above: Performed By: #### H FPF #### [facility] [address] [place] [address] Dr. Salma Harris Triglyceride [Mass/Vol] 100 mg/dL Normal <=150 [facility] Comment on above: Performed By: #### H FPF #### [facility] [address] [address] [address] Salma Harris TSH 1.629 uIU/mL Normal 0.358-3.[address] [facility] Comment on above: Performed By: #### H FPF #### [facility] [address] [address] [address] Salma Harris Urea nitrogen [Mass/Vol] 15.0 mg/dL Normal 7.0-18.0 [facility] Comment on above: Performed By: #### H FPF #### [facility] [address] [address] [address] Salma Harris Urea nitrogen/Creatinine [Mass ratio] 19.0 mg/mg Normal [facility] Comment on above: Performed By: #### H FPF #### [facility] [address] [address] [address] Salma Harris VLDL CALC 20.0 mg/dL Normal [facility] Comment on above: Performed By: #### H FPF #### [facility] [address] [address] [address] Salma Harris Vital Signs Date Time Vital Sign Value Performing Clinician Facility 02-03-2023 13:45-0500 Body height 177.8 cm Ulysses Ball Other [facility] Other 02-03-2023 13:45-0500 Body mass index (BMI) [Ratio] 31.25 kg/m2 Ulysses Ball Other [facility] Other 02-03-2023 13:45-0500 Body weight 98.79 kg Ulysses Ball Other [facility] Other 02-03-2023 13:45-0500 Diastolic blood pressure 84 mm[Hg] Ulysses Ball Other [facility] Other 02-03-2023 13:45-0500 Respiratory rate 12 /min Ulysses Ball Other [facility] Other 02-03-2023 13:45-0500 Systolic blood pressure 137 mm[Hg] Ulysses Ball Other [facility] Other 10-21-2022 15:00-0400 Body height 177.8 cm Ulysses Ball Other [facility] Other 10-21-2022 15:00-0400 Body mass index (BMI) [Ratio] 30.9 kg/m2 Ulysses Ball Other [facility] Other 10-21-2022 15:00-0400 Body weight 97.71 kg Ulysses Ball Other [facility] Other 10-21-2022 15:00-0400 Diastolic blood pressure 78 mm[Hg] Ulysses Ball Other [facility] Other 10-21-2022 15:00-0400 Respiratory rate 12 /min Ulysses Ball Other [facility] Other 10-21-2022 15:00-0400 Systolic blood pressure 126 mm[Hg] Ulysses Ball Other [facility] Other 10-04-2022 10:16-0400 Body height 177.8 cm Ulysses Ball Other [facility] Other 09-11-2022 14:30-0400 Body height 177.8 cm Ulysses Ball Other [facility] Other 09-11-2022 14:30-0400 Body mass index (BMI) [Ratio] 31.05 kg/m2 Ulysses Ball Other [facility] Other 09-11-2022 14:30-0400 Body weight 98.16 kg Ulysses Ball Other [facility] Other 09-11-2022 14:30-0400 Diastolic blood pressure 82 mm[Hg] Ulysses Ball Other [facility] Other 09-11-2022 14:30-0400 Respiratory rate 12 /min Ulysses Ball Other [facility] Other 09-11-2022 14:30-0400 Systolic blood pressure 139 mm[Hg] Ulysses Ball Other [facility] Other 03-04-2021 14:30-0500 Body height 177.8 cm Ese Simental Other [facility] Other 03-04-2021 14:30-0500 Body mass index (BMI) [Ratio] 28.41 kg/m2 Ese Simental Other [facility] Other 03-04-2021 14:30-0500 Body weight 89.81 kg Ese Simental Other [facility] Other Encounters Encounter Date Encounter Type Care Provider Facility Start: 03-15-2023 End: 03-15-2023 ambulatory SHALINI MOREJON Not Available Start: 02-16-2023 ambulatory Joni Gilbert Facility:[facility] Start: 02-03-2023 End: 02-03-2023 ambulatory Ulysses Barger Other [facility] Other Start: 02-03-2023 Office outpatient visit 15 minutes Ulysses Charbel [facility] Start: 10-21-2022 End: 10-21-2022 ambulatory Ulysses Ball Other [facility] Other Start: 10-21-2022 Office outpatient visit 15 minutes Ulysses Ball [facility] Start: 10-09-2022 End: 10-09-2022 ambulatory Ulysses Ball Other [facility] Other Start: 10-09-2022 Telephone encounter Ulysses Barger [facility] Start: 10-06-[address] SHALINI MOREJON Facili ty:[facility] Start: 10-04-2022 End: 10-04-2022 ambulatory Ulysses Ball Other [facility] Other Start: 10-04-2022 Encounter for other preprocedural examination Ulysses Barger [facility] Start: 10-04-2022 Telephone encounter Ulsyses Barger [facility] Start: 10-02-2022 End: 10-02-2022 ambulatory Ulysses Barger Other [facility] Other Start: 10-02-2022 Telephone encounter Ulysses Barger [facility] Start: 09-28-2022 Telephone encounter Ulysses Barger [facility] Start: 09-28-2022 End: 09-28-[address] ULYSSES BARGER Facility:[facility] Start: 09-11-2022 End: 09-11-2022 ambulatory Ulysses Barger Other [facility] Other Start: 09-11-2022 Office outpatient visit 15 minutes Ulysses Barger [facility] Start: 06-26-2022 End: 06-27-2022 ambulatory Shalini Morejon Facility:[facility] Start: 06-26-2022 End: 06-26-2022 Patient encounter procedure Shalini Morejon [facility] Start: 06-02-2022 End: 06-02-2022 ambulatory Ulysses Barger Other [facility] Other Start: 06-02-2022 Telephone encounter Ulysses CONLEY [facility] Start: 03-19-2022 End: 03-19-2022 ambulatory Ulysses Barger Other [facility] Other Start: 03-19-2022 Office outpatient visit 15 minutes Ulysses Barger [facility] Start: 03-19-2022 Telephone encounter Ulysses Charbel [facility] Start: 03-16-2022 End: 03-17-[address] ULYSSES BARGER Facility:[facility] Start: 12-10-2021 End: 12-10-2021 ambulatory Yao Bello Other [facility] Other Start: 12-10-2021 Telephone encounter Yao Grewal [facility] Start: 10-16-2021 End: 10-17-[address] ULYSSES BAGRER Facility:[facility] Start: 08-18-2021 ambulatory Laila Basurto ity:[facility] Start: 05-19-2021 Adult health examination Ulysses Barger Other [facility] Other Start: 03-04-2021 End: 03-04-2021 ambulatory Ese Simental Other [facility] Other Start: 03-04-2021 Office outpatient visit 15 minutes Ese Simental [facility] Procedures Date Procedure Procedure Detail Performing Clinician Start: 03-29-2019 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) Shalini Morejon Comment on above: left ear Start: 08-18-2018 Screening for malign ant neoplasm of colon Ulysses Barger Other Start: 03-01-2015 Cholecystectomy Shalini Morejon Start: 09-07-2014 Screening mammography B lamont Bar[facility] Other Start: 03-01-1986 Osteophyte of bone (disorder) Shalini Morejon Start: 03-01-1983 Appendectomy Shalini asher Immunizations Immunization Date Immunization Notes Care Provider Tesfaye thomas 05-09-2020 COVID-19 Vaccine Pfi zer - Documentation Purposes Only Ulysses Barger Other [facility] Other 04-12-2020 COVID-19 Vaccine Pfi zer - Documentation Purposes Only Ulysses Barger Other [facility] Other Payers Date Payer Category Payer Self-pay 1965 Unknown [id number] 2.16.8 [id number] 1965 Unknown [id number] 2.16.8 [id number] 1966 Unknown [id number] 2.16.84 [id number] 1966 Unknown [id number] 2.16.84 [id number] 1966 Unknown [id number] 2.16.84 [id number] 1966 Unknown [id number] 2.16.84 [id number] 1959 Self-pay [id number] 1959 Unknown [id number]. [id number] Unknown [id number] 2.16.84 [id number] Unknown [id number] 2.16.8 [id number] Social History Date Type Detail Facility Unknown if ever smoked [facility] Other Sex Assigned At [facility] Start: 08-10-2019 Tobacco smoking status Never s moked tobacco (finding) [facility] Tobacco smoking status Never [facility] Clinical Notes 03-19-2022 to 02-03-2023 Note Date & Type Note Facility 02-03-2023 Evaluation note Encounter Date Diagnosis Assessment Notes Jan, Acute diffuse otitis externa of right ear (ICD-10 - H60.311) Keep clean and dry. Avoid use of QTips. Begin drops and call office w/ increased pain. Jan, Acute non-recurrent maxillary sinusitis (ICD-10 - J01.00) Instructed to use Robitussin or Mucinex for cough, saline or Flonase NS for congestion, Tylenol for pain and fever. [facility] Other 08-23-2023 Evaluation note* Encounter Date Diagnosis Assessment Notes Treatment Notes Treatment Clinical Notes Sep, Primary hypertension (ICD-10 - I10) This patient is instructed to consume a healthy, low-fat, low-salt diet. They are also encouraged to continue exercise to achieve/maintain a normal BMI. Sep, PVC (premature ventricular contraction) (ICD-10 - I49.3) Avoid stimulants. COntinue Metoprolol for now. COntrol BP Healthy, low salt/fat diet No restrictions Sep, Elevated cholesterol (ICD-10 - E78.00) Instructed on diet and exercise with continued statin therapy.Discussed the beneficial effects of lowering cholesterol in reducing the risk for cerebrovascular and cardiovascular disease. Sep, Mild episode of recurrent major depressive disorder (ICD-10 - F33.0) Doing well w/ treatment medication Healthy diet, exercise keep active Sep, CONOR (generalized anxiety disorder) (ICD-10 - F41.1) Healthy diet, exercise and keep active Taking Atarax PRN anxiety breakthrough Continue present Rx f/u Psych Sep, Abnormal EKG (ICD-10 - R94.31) Stress images normal ST/T wave change likely related to longstanding HTN. Improved BP controlled stressed Sep, Other Diet instructio ns: Smaller portions, avoid eating and laying flat, avoid eating or drinking prior to bedtime. Weight loss. [facility] Other 08-06-2023 Evaluation note* Encounter Date Diagnosis Assessment Notes Treatment Notes Treatment Clinical Notes Sep, Preop exam for internal medicine (ICD-10 - Z01.818) Ms. Gonzales has completed stress testing for preoperative evaluation of an abnormal EKG. She has low risk for complications and it is my recommendation that she proceed with surgery. Sep, Elevated cholesterol (ICD-10 - E78.00) Stable, continue medication without interruption. Sep, Primary hypertension (ICD-10 - I10) Stable, continue medication without interruption [facility] Other 08-04-2023 Evaluation note* Encounter Date Diagnosis Assessment Notes Treatment Notes Treatment Clinical Notes Sep, Primary hypertension (ICD-10 - I10) [facility] Other 08-01-2023 History general Narrative - Reported* Type Description Date Medical History hypertension Medical History GERD Medical History hyperlipidemia Surgical History cholecystectomy Surgical History appendectomy Surgical History Septoplasty, turbinate resectio n 09/2022 Hospitalization History See Above [facility] Other 07-31-2023 Evaluation note* Encounter Date Diagnosis Assessment Notes Treatment Notes Treatment Clinical Notes Aug, Abnormal EKG (ICD-10 - R94.31) Aug, Primary hypertension (ICD-10 - I10) Aug, Family history of coronary artery disease (ICD-10 - Z82.49) [facility] Other 07-14-2023 Evaluation note* Encounter Date Diagnosis Assessment Notes Treatment Notes Treatment Clinical Notes Aug, Chronic maxillary sinusitis (ICD-10 - J32.0) Continue saline flush and Flonase NS. f/u ENT Aug, Deviated nasal septum (ICD-10 - J34.2) Agree w/ surgical treatment. She has exhausted conservative treatment Aug, Primary hypertension (ICD-10 - I10) This patient is instructed to consume a healthy, low-fat, low-salt diet. They are also encouraged to continue exercise to achieve/maintain a normal BMI. [facility] Other 01-19-2023 Evaluation note* Encounter Date Diagnosis Assessment Notes Treatment Notes Treatment Clinical Notes Mar, Acute pharyngitis due to other specified organisms (ICD-10 - J02.8) Instructed to use Robitussin or Mucinex for cough, saline or Flonase NS for congestion, Tylenol for pain and fever. Mar, Chronic ethmoidal sinusitis (ICD-10 - J32.2) Continue Flonase [facility] Other Evaluation + Plan note No data available for this section [facility]No [facility] Other History general Narrative - [facility] Other History general Narrative - Reported* Type Description Date Medical History hypertension Medical History GERD Medical History hyperlipidemia Surgical History cholecystectomy Surgical History appendectomy Hospitalization History See Above [facility] Other Hospital Discharge instructions No data available for this section [facility] No data available for this section [facility] Reason for Referral Reason 05/27/22 Chronic s inusitis Diagnosis 1 Chronic ethmoidal si nusitis (J32.2) Referral Organization [facility] jolynn Referring Provider First Name Ulysses Referring Provider Last Name Charbel Referring Provider Specialty Internal Me dicine Referred Organization [facility] Referred Provider Shalini Morejon Referred Address ,[place], [place],[address] Referred Provider Specialty Ear, Nose an d Throat Referral Priority Routine Referral Appointment Date 2022-05-27 General Notes Patient with persist ent nasal congestion, facial pressure since COVID infection in September,. Gay Garcia 03/19/2022 02:05:38 PM >received today, notes locked, attachments made, referral faxed P2P Gay Garcia 03/26/2022 07:50:03 AM >faxed first attempt letter Gay Garcia 03/26/2022 11:39:03 AM >pt scheduled Clinical Notes Patient has experien marybeth nasal congestion w/ facial pressure since late September. No improvement in symptoms despite treatment for allergies and infection. She has been instructed to use antihistamines, Flonase. She was also prescribed broad spectrum antibiotics for 14 days w/o improvement. CT scan indicates obstruction and opacification of several left sided sinus cavities. Summary Purpose Family History No Family History Records FoundNo Family History Records FoundNo Family History Records FoundNo Family History Records Found Advance Directives No Advanced Directives Records FoundNo Advanced Directives Records FoundNo Advanced Directives Records FoundNo Advanced Directives Records Found Additional Source Comments REASON FOR VISIT (unrecogniz ed section and content) REFILLsore throat, cough, co ngestion ear ache negative covidNo InformationNo Informationdiscussion about sinus surgeryStress TestStress TestAbnormal EKGNo Informationfollow upEarache Patient Care team informatio n (unrecognized section and content) Personnel Name: ULYSSES BARGER DO Address: Address: [address] [place] [address]- INFORMATION SOURCE (unrecogn ized section and content) DATE CREATED AUTHOR 07/02/2022 [facility] DATE CREATED AUTHOR AUTHOR'S ORGANIZ ATION 07/10/2022 Yolanda Oneal [facility] DATE CREATED AUTHOR AUTHOR'S ORGANIZ ATION 03/15/2023 [facility] DATE CREATED AUTHOR AUTHOR'S ORGANIZ ATION 05/02/2023 [facility] FOR RECORDS PERTAINING TO PATIENTS WHO ARE OR HAVE BEEN ENROLLED IN A CHEMICAL DEPENDENCY/SUBSTANCEABUSE PROGRAM, SOME INFORMATION MAY BE OMITTED. This clinical summary was aggregated from multiple sources. Caution should be exercised in using it in the provision of clinical care. This summary normalizes information from multiple sources, and as a consequence, information in this document may materially change the coding, format and clinical context of patient data. In addition, data may be omitted in some cases. CLINICAL DECISIONS SHOULD BE BASED ON THE PRIMARY CLINICAL RECORDS. [facility] [employer] [facility]. provides no warranty or guarantee of the accuracy or completeness of information in this document.
[2023-05-06 16:02] LABS: Influenza Virus A Antigen Negative; Influenza Virus B Antigen Negative; Internal Control Within Normal Limits
[2023-05-07 15:56] LABS: Influenza Virus A PCR NEGATIVE (NEGATIVE); Influenza Virus B PCR NEGATIVE (NEGATIVE); SARS-CoV-2 NAA NOT DETECTED (NOT DETECTE)
== END 2023-05-06 15:20 | disposition home or self-care (01) ==
LOC: LAB 15:19
PROVIDERS: PCP Internal Medicine; Visit Provider Internal Medicine
DX: Z20.822 Contact with and (suspected) exposure to COVID-19 (principal); Z11.8 Encounter for screening for other infectious and parasitic diseases
CPT/HCPCS: 87635; 87804

== ENCOUNTER 2023-08-03 15:48 | Emergency (ER) | payer OTHER, SELFPAY ==
[2023-08-03 16:06] VITALS: BP 154/96; PULSE 62; TEMP 37; O2SAT 100; BMI 30.4
--- NOTE | 2023-08-03 18:08 | ECG_ITS ---
The [facility] Test Date: 2023-08-03 Pat Name: SIERRA GONZALES Department: Room: - Gender: Female Director Of Development: : 1965 Requested By: GIRISH CANCHOLA Order Number: [id number] Reading MD: GIRISH CANCHOLA Measurements Intervals [place] Rate: 50 P: 61 [place]: 192 QRS: 81 QRSD: 106 T: 169 QT: 412 QTc: 386 Interpretive Statements 1100 Sinus rhythm [address] depression 4364 Twave abnormality, possible anterolateral ischemia 9150 abnormal ECG Electronically Signed On 08-04-2023 6:57:34 EDT by GIRISH CANCHOLA
--- NOTE | 2023-08-03 18:13 | CT_ITS ---
The [address] [address] Patient Name: SIERRA GONZALES MRN: [id number] date: 1965 Sex: F Assigned Patient Location: ED.MAIN Current Patient Location: ER Accession/Order Number: [id number] Exam Date: 08/03/2023 19:38 Report Date: 08/03/2023 20:44 At the request of: KENYON DE LA CRUZ Procedure: CT abdomen pelvis w con EXAM: CT abdomen pelvis w con HISTORY: left lower quadrant pain, nausea/vomiting COMPARISON: 12/19/2020. TECHNIQUE: Enhanced helical acquisition obtained through the abdomen and the pelvis. FINDINGS: The visualized lung bases and the pleural spaces are clear. Status post cholecystectomy. The liver, spleen, pancreas, adrenal glands and the kidneys are unremarkable. Moderate atherosclerotic disease. No enlarged lymph nodes within the abdomen or the pelvis. Prior appendectomy. No ascites or focal intraperitoneal fluid collections. CT/CT abdomen pelvis w con IMPRESSION: Prior appendectomy. Prior cholecystectomy. No inflammatory changes within the abdomen or the pelvis. Electronically authenticated by: RADHA SANTOS Date: 08/03/2023 20:44
--- NOTE | 2023-08-03 18:14 | ED_ITS ---
HPI HPI - General Adult General Chief complaint: Nausea/Vomiting/Diarrhea Stated complaint: Nausea/Vomiting/Diarrhea Time Seen by Provider: 08/03/23 18:08 Source: patient Mode of arrival: walk-in History of Present Illness HPI narrative: Patient is a 58-year-old female who presents to the emergency department for nausea, vomiting and abdominal pain. She states for the last 4 to 5 days she has felt nauseous and has begun vomiting in the last 2 to 3 days. She states she did have some pain in the left lower quadrant was seen yesterday by her miner helper who did a vaginal ultrasound. They were not able to visualize the left ovary and she was told that she may be constipated. She has had no fevers or upper respiratory symptoms. She has had a previous cholecystectomy and appendectomy. No medications taken prior to arrival. No urinary symptoms. Related Data Home Medications ?Medication ?Instructions ?Recorded ?Confirmed alprazolam 1 mg tablet 1 mg PO TID 09/28/22 10/06/22 cetirizine 10 mg tablet (24Hour 5 mg PO DAILY 09/28/22 10/06/22 Allergy) fluticasone furoate 27.5 2 spray intranasal DAILY 09/28/22 10/06/22 mcg/actuation nasal spray,suspension (Flonase Sensimist) hydroxyzine pamoate 25 mg capsule 25 mg PO .Q12 09/28/22 10/06/22 lansoprazole 30 mg capsule,delayed 30 mg PO DAILY 09/28/22 10/06/22 release (Prevacid) lisinopril 10 mg tablet 10 mg PO BID 09/28/22 10/06/22 pravastatin 40 mg tablet 20 mg PO .EVERY EVENING 09/28/22 10/06/22 sucralfate 1 gram tablet 1 g PO DAILY PRN GASTRITIS 09/28/22 10/06/22 metoprolol succinate 25 mg 25 mg PO DAILY 10/06/22 10/06/22 tablet,extended release 24 hr Previous Rx's ?Medication ?Instructions ?Recorded hyoscyamine sulfate 0.125 mg 0.125 mg PO Q6H PRN abdominal pain 08/03/23 tablet (Levsin) #12 tabs ondansetron 4 mg disintegrating 4 mg PO Q6H PRN nausea and 08/03/23 tablet vomiting #12 tabs Allergies Allergy/AdvReac Type Severity Reaction Status Date / Time No Known Drug Allergies Allergy Verified 10/06/22 09:58 Opioid HPI Opioid Management Most Recent Opioid Data: Last Pain Scale 3 08/03/23 18:28 Last MAR Pain Assessment 08/03/23 18:28 Review of Systems ROS Constitutional Denies: fever or chills Ears, nose, mouth, and throat Denies: throat pain or nasal congestion Cardiovascular Denies: chest pain Respiratory Denies: shortness of breath Gastrointestinal Reports: abdominal pain, nausea, vomiting and constipation; Denies: diarrhea Musculoskeletal Denies: back pain Integumentary/Breast Denies: rash Hematologic/Lymphatic Denies: easy bruising or easy bleeding PFSH PFSH Medical History (Updated 08/03/23 @ 20:58 by ANTOINETTE Rodriguez) Skin cancer ?C44.90 - Unspecified malignant neoplasm of skin, unspecified (ICD-10) Anxiety ?F41.9 - Anxiety disorder, unspecified (ICD-10) Seasonal allergies ?J30.2 - Other seasonal allergic rhinitis (ICD-10) Hypertension ?I10 - Essential (primary) hypertension (ICD-10) Menopause ?Z78.0 - Asymptomatic menopausal state (ICD-10) Surgical History (Updated 09/28/22 @ 09:39 by Karla Sweet) History of esophagogastroduodenoscopy (EGD) ?Z98.890 - Other specified postprocedural states (ICD-10) History of colonoscopy ?Z98.890 - Other specified postprocedural states (ICD-10) History of foot surgery ?Z98.890 - Other specified postprocedural states (ICD-10) History of cholecystectomy ?Z90.49 - Acquired absence of other specified parts of digestive tract (ICD- 10) History of appendectomy ?Z90.49 - Acquired absence of other specified parts of digestive tract (ICD- 10) Family History (Updated 09/28/22 @ 09:41 by Karla Sweet) Other Family history of diabetes mellitus Family history of myocardial infarction Family history of prostate cancer Family history of stroke Myeloma Social History Within the past year, how often did you have a drink containing alcohol: 2-4 times a month Within the past year, how many standard drinks containing alcohol did you have on a typical day: 3 or 4 Smoking status: Never smoker Non-prescribed substance use: denies use 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 Highest level of school completed/degree received: Bachelor's degree Exam Narrative Exam Narrative: Gen.: Awake, alert, in no distress Head: Normocephalic, atraumatic ENT: Moist mucous membranes Respiratory: No respiratory distress, lungs clear bilaterally Cardio: Regular rate and rhythm Gastrointestinal: Abdomen is soft, nondistended and Mildly tender to palpation in the left lower quadrant with no guarding or rebound Extremities: Moves extremities equally Psych: Normal mood and affect Neuro: No focal neuro deficit Skin: Warm, dry, intact Constitutional Vital Signs, click to edit/add: Last Vital Signs Temp 98.6 F 08/03/23 16:06 Pulse 48 L 08/03/23 20:14 Resp 18 08/03/23 20:14 BP 162/86 H 08/03/23 19:21 Pulse Ox 99 08/03/23 20:14 O2 Del Method Room Air 08/03/23 16:06 Course Vital Signs Vital signs: Vital Signs Temperature 98.6 F 08/03/23 16:06 Pulse Rate 62 08/03/23 16:06 Respiratory Rate 16 08/03/23 16:06 Blood Pressure 154/96 H 08/03/23 16:06 Pulse Oximetry 100 08/03/23 16:06 Oxygen Delivery Method Room Air 08/03/23 16:06 Temperature 98.6 F 08/03/23 16:06 Pulse Rate 48 L 08/03/23 20:14 Respiratory Rate 18 08/03/23 20:14 Blood Pressure 162/86 H 08/03/23 19:21 Pulse Oximetry 99 08/03/23 20:14 Oxygen Delivery Method Room Air 08/03/23 16:06 Medical Decision Making [facility] Narrative Medical decision making narrative: Patient was found to have sinus bradycardia in the ER, she is taking metoprolol, she is asymptomatic with the bradycardia. Lab studies are unremarkable, CT of the abdomen and pelvis with no evidence of acute process. Patient is pain controlled on reevaluation by attending physician she is discharged home with Levsin Zofran to follow-up with PCP and return to the ER if symptoms change or worsen. Medical Records Medical records reviewed: Yes I reviewed the patient's medical records Lab Data Lab results reviewed: Yes I reviewed the patient's lab results Labs: Lab Results 08/03/23 08/03/23 Range/Units 18:10 18:15 WBC 7.4 (4.0-11.0) 10^3/uL RBC 5.14 (4.20-5.40) 10^6/uL Hgb 14.6 (12.0-16.0) g/dL Hct 45.2 (36.0-48.0) % MCV 87.9 (81.0-99.0) fL MCH 28.4 (26.7-34.0) pg MCHC 32.3 (29.9-35.2) g/dL RDW 12.4 (11.0-15.0) % Plt Count 250 (150-450) 10^3/uL MPV 11.0 (9.5-13.5) fL Neut % (Auto) 51.5 (43.0-75.0) % Lymph % (Auto) 38.2 (20.5-60.0) % [place] % (Auto) 8.3 (1.7-12.0) % Eos % (Auto) 0.8 L (0.9-7.0) % Baso % (Auto) 0.9 (0.2-2.0) % Neut # (Auto) 3.8 (1.4-6.5) 10^3/uL Lymph # (Auto) 2.8 (1.2-3.8) 10^3/uL [place] # (Auto) 0.6 (0.3-0.8) 10^3/uL Eos # (Auto) 0.1 (0.0-0.7) 10^3/uL Baso # (Auto) 0.1 (0.0-0.1) 10^3/uL Abs Immat Gran (auto) 0.02 (0.00-0.03) 10^3/uL Imm/Tot Granulo (auto) 0.3 (0.0-0.5) % Sodium 142 (136-145) mmol/L Potassium 3.5 (3.5-5.1) mmol/L Chloride 103 (98-107) mmol/L Carbon Dioxide 29.2 (21.0-32.0) mmol/L Anion Gap 13.3 BUN 10.0 (7.0-18.0) mg/dL Creatinine 0.89 (0.55-1.02) mg/dL Est GFR ( Amer) >60 (>=60) Est GFR (Non-Af Amer) >60 (>=60) BUN/Creatinine Ratio 11.2 Glucose 93 (74-106) mg/dL Lactate 1.4 (0.4-2.0) mmol/L Calcium 9.8 (8.5-10.1) mg/dL Total Bilirubin 0.7 (0.2-1.0) mg/dL AST 12 L (15-37) U/L ALT 24 (14-59) U/L Alkaline Phosphatase 108 (46-116) U/L Troponin I High Sens 22.9 (4.0-51.3) pg/mL Total Protein 8.4 H (6.4-8.2) g/dL Albumin 4.4 (3.4-5.0) g/dL Globulin 4.0 g/dL Albumin/Globulin Ratio 1.1 Lipase 35.0 (16.0-77.0) U/L Urine Color Lt. yellow (YELLOW) Urine Clarity Clear (CLEAR) Urine pH 6.0 (5.0-9.0) Ur Specific [place] <=1.005 A (1.005-1.025) Urine Protein Negative (NEG/TRACE) mg/dL Urine Glucose (UA) Negative (NEGATIVE) mg/dL Urine Ketones Negative (NEGATIVE) mg/dL Urine Occult Blood Negative (NEGATIVE) Urine Nitrite Negative (NEGATIVE) Urine Bilirubin Negative (NEGATIVE) Urine Urobilinogen 0.2 (0.2-1.0) EU/dL Ur Leukocyte Esterase Negative (NEGATIVE) Urine RBC None seen (0-2) #/HPF Urine WBC None seen (NONE SEEN) #/HPF Ur Squamous Epith Cells Rare (NONE/RARE) #/LPF Urine Crystals None seen (None Seen) #/HPF Urine Bacteria None seen (NONE SEEN) #/HPF Urine Casts None seen (NONE SEEN) #/LPF Urine Mucus None seen (NONE SEEN) Imaging Data CT scan - abdomen: Attestation: I have reviewed the pertinent imaging results. Radiologist's impression: ITS Impressions Abdomen/Pelvis CT 08/03/23 18:13 IMPRESSION: Prior appendectomy. Prior cholecystectomy. No inflammatory changes within the abdomen or the pelvis. Electronically authenticated by: RADHA SANTOS Date: 08/03/2023 20:44 ECG Data Attestation: I personally reviewed and interpreted this ECG as follows: (Normal sinus rhythm at a rate of 50, ST depression with no acute ST elevation or ectopy. EKG reviewed by attending physician) Discharge Plan Discharge Stand Alone Forms: Portal Instructions Chief Complaint: Nausea/Vomiting/Diarrhea Clinical Impression: Abdominal pain Patient Disposition: Home, Self-Care Time of Disposition Decision: 20:58 Condition: Good Prescriptions / Home Meds: New hyoscyamine sulfate [Levsin] 0.125 mg tablet 0.125 mg PO Q6H PRN (Reason: abdominal pain) Qty: 12 0RF ondansetron 4 mg tablet,disintegrating 4 mg PO Q6H PRN (Reason: nausea and vomiting) Qty: 12 0RF No Action lisinopril 10 mg tablet 10 mg PO BID sucralfate 1 gram tablet 1 g PO DAILY PRN (Reason: GASTRITIS) pravastatin 40 mg tablet 20 mg PO .EVERY EVENING hydroxyzine pamoate 25 mg capsule 25 mg PO .Q12 cetirizine [24Hour Allergy] 10 mg tablet 5 mg PO DAILY Flonase Sensimist 27.5 mcg/actuation spray,suspension 2 spray intranasal DAILY Rx Instructions: into each nostril alprazolam 1 mg tablet 1 mg PO TID lansoprazole [Prevacid] 30 mg capsule,delayed release(DR/EC) 30 mg PO DAILY metoprolol succinate 25 mg tablet extended release 24 hr 25 mg PO DAILY Print Language: Luxembourgish Instructions: Acute Abdominal Pain (ED) Referrals: Ulysses Barger DO [Primary Care Provider] - 1 week
[2023-08-03] MEDS: 0.9 % SODIUM CHLORIDE 1,000 ML 999 ML IV (18:27)
[2023-08-03] MEDS: HYOSCYAMINE SULFATE 0.125 MG TAB.SUBL SL (18:28)
[2023-08-03] MEDS: HYDROMORPHONE HCL 0.5 MG/0.5 ML SYRINGE IVP (18:28)
[2023-08-03] MEDS: ONDANSETRON PF 4 MG/2 ML VIAL IV (18:28)
[2023-08-03 18:38] LABS: Basophils Absolute Auto 0.1 10^3/uL (0.0-0.1); Basophils Percent Auto 0.9 % (0.2-2.0); Eosinophils Absolute Auto 0.1 10^3/uL (0.0-0.7); Eosinophils Percent Auto 0.8 % (0.9-7.0); Hematocrit 45.2 % (36.0-48.0); Hemoglobin 14.6 g/dL (12.0-16.0); Immature Granulocytes Abs Auto 0.02 10^3/uL (0.00-0.03); Immature Granulocytes Pct Auto 0.3 % (0.0-0.5); Lymphocytes Absolute Auto 2.8 10^3/uL (1.2-3.8); Lymphocytes Percent Auto 38.2 % (20.5-60.0); Mean Corpuscular HGB Conc 32.3 g/dL (29.9-35.2); Mean Corpuscular Hemoglobin 28.4 pg (26.7-34.0); Mean Corpuscular Volume 87.9 fL (81.0-99.0); Monocytes Absolute Auto 0.6 10^3/uL (0.3-0.8); Monocytes Percent Auto 8.3 % (1.7-12.0); Neutrophils Absolute Auto 3.8 10^3/uL (1.4-6.5); Neutrophils Percent Auto 51.5 % (43.0-75.0); Platelet Count 250 10^3/uL (150-450); Red Blood Count 5.14 10^6/uL (4.20-5.40); Red Cell Distribution Width 12.4 % (11.0-15.0); White Blood Count 7.4 10^3/uL (4.0-11.0)
[2023-08-03 18:39] LABS: Bilirubin Urine NEGATIVE (NEGATIVE); Blood Urine NEGATIVE (NEGATIVE); Clarity Urine CLEAR (CLEAR); Color Urine LT. YELLOW (YELLOW); Glucose Urine UA NEGATIVE (NEGATIVE); Ketones Urine NEGATIVE (NEGATIVE); Leukocyte Esterase Urine NEGATIVE (NEGATIVE); Nitrite Urine NEGATIVE (NEGATIVE); Protein Urine NEGATIVE (NEG/TRACE); Specific Gravity Urine <=1.005 (1.005-1.025); Urobilinogen Urine 0.2 EU/dL (0.2-1.0)
--- NOTE | 2023-08-03 18:54 | PC.NURSE ---
Patient reports LLQ abd pain that has been ongoing for 4 days. soft stools but increased nausea. began vomiting 2 days ago
[2023-08-03 18:57] LABS: Bacteria Urine NONE SEEN #/HPF (NONE SEEN); Cast Seen? NONE SEEN #/LPF (NONE SEEN); Crystals Seen? None Seen #/HPF (None Seen); Mucus Urine NONE SEEN (NONE SEEN); RBC Urine NONE SEEN #/HPF (0-2); Squamous Epithelial Cell Urine RARE #/LPF (NONE/RARE); WBC Urine NONE SEEN #/HPF (NONE SEEN)
[2023-08-03 19:10] LABS: Lactate/Lactic Acid 1.4 mmol/L (0.4-2.0)
[2023-08-03 19:16] LABS: Alanine Aminotransferase 24 U/L (14-59); Albumin Globulin Ratio 1.1; Albumin Level 4.4 g/dL (3.4-5.0); Alkaline Phosphatase 108 U/L (46-116); Anion Gap 13.3; Aspartate Amino Transferase 12 U/L (15-37); BUN Creatinine Ratio 11.2; Bilirubin Total 0.7 mg/dL (0.2-1.0); Calcium 9.8 mg/dL (8.5-10.1); Carbon Dioxide 29.2 mmol/L (21.0-32.0); Chloride 103 mmol/L (98-107); Estimated GFR (African America >60 (>=60); Estimated GFR (Non-African Ame >60 (>=60); Glucose 93 mg/dL (74-106); Potassium 3.5 mmol/L (3.5-5.1); Sodium 142 mmol/L (136-145); Total Protein 8.4 g/dL (6.4-8.2)
[2023-08-03 19:19] LABS: Troponin I High Sensitivity 22.9 pg/mL (4.0-51.3)
[2023-08-03 19:21] VITALS: BP 162/86; PULSE 45; O2SAT 99
[2023-08-03 20:14] VITALS: PULSE 48; O2SAT 99
[2023-08-03 21:08] VITALS: BP 137/97; PULSE 54; O2SAT 99
== END 2023-08-03 21:08 | disposition home or self-care (01) ==
PROVIDERS: Emergency Medicine; Physician Assistant; Emergency Provider Emergency Medicine; PCP Internal Medicine
DX: R10.9 Unspecified abdominal pain (principal); Z90.49 Acquired absence of other specified parts of digestive tract
CPT/HCPCS: 36415; 74177; 80053; 81001; 83605; 83690; 84484; 85025; 93005; 96361; 96374; 96375; 99285; J1170; Q9967

== ENCOUNTER 2024-08-08 14:51 | Outpatient (OUT) | payer OTHER, SELFPAY ==
--- OUTSIDE RECORDS SUMMARY | 2024-08-08 14:54 | XMS_ITS | Encounter Summary ---
Author Organization [facility] Address [address] [facility] [place] [address] Care Team Providers Care Assembler Flexible Leads Name Role Phone Ulysses Barger DO Primary Care Provider [phone] Meghan Ramirez APRN-SCANNING COORDINATOR Unavailable [phone] Encounter Details Date Type Department Care Team (Late Contact Info) Description 09/07/2022 Abstract [facility] [address] [facility] [address] [place] [address] Shalini Canchola MD [address] [facility] [address] [place] [address] Social History Tobacco Use Types Packs/Day Years Used Date Smoking Tobacco: Never Smokeless Tobacco: Never Alcohol Use Standard Drinks/Week Comments Not Currently 0 (1 standard drink = 0.6 oz pur e alcohol) AUDIT-C Answer Date Recorded Q1: How often do you have a drink containing alcohol? Monthly or less 08/20/2022 Q2: How many drinks containi ng alcohol do you have on a typical day when you are drinking? Patient does not drink Q3: How often do you have si x or more drinks on one occasion? Never 08/20/2022 PHQ-2 Answer Date Recorded Patient Health Questionnaire-2 Score 0 08/20/2022 Comments No Sex and Gender Information Value Date Recorded Sex Assigned at Not on file Legal Sex Female 7:34 PM EDT Gender Identity Not on file Sexual Orientation Not on file documented as of this encounter Plan of Treatment Upcoming Encounters Date Type Department Care Team (Late Contact Info) Description 08/29/2024 8:00 AM EDT Office Visit [facility] [address] [address] Laila Nolasco, STUDENT DEAN [address] [place] [address] 07/05/2025 3:35 PM EDT Office Visit [facility] [address] [place] [phone] Meghan Ramirez APRN-SCANNING COORDINATOR [address] [place] [address] documented as of this encounter Visit Diagnoses Not on filedocumented in this encounter Care Teams Assembler Flexible Leads Relationship Specialty Start Date End Date Ulysses Barger DO PCP - General Internal Medicine 07/16/22 Meghan Ramirez APRN-SCANNING COORDINATOR [address] [place] [address] PCP - Medical [place] [employer] 08/29/13 02/28/99 documented as of this encounter
--- OUTSIDE RECORDS SUMMARY | 2024-08-08 14:54 | XMS_ITS | Clinical Summary ---
Author Organization [facility] Address [address] [place] [address] Care Team Providers Care Paper Finisher Name Role Phone Charbel Ulysses Sherif BHARDWAJ Primary Care Provider [phone] Meghan Ramirez APRN-MILITARY TECHNICIAN Unavailable [phone] Allergies No known active allergies Medications Xanax 1 MG tablet every 8 (eight) hours. Active cetirizine (ZyrTEC) 10 MG tablet 1 (one) time each day at the same time. Active Vistaril 25 MG capsule 1 capsule as needed Orally bid prn Active lansoprazole (Prevacid 24HR) [address] capsule 1 (one) time each day at the same time. Active lisinopril 10 MG tablet 1 tablet Orally two times daily Active pravastatin (Pravachol) 20 MG tablet 3 Active Carafate 1 g tablet every 12 (twelve) hours. Active Melatonin 1 MG chewable tablet Daily at bedtime 4 Active fluticasone (Flonase) 50 MCG/ACT nasal spray Daily 4 Active metoprolol succinate XL (Toprol-XL) 25 MG 24 hr tablet Daily 4 Active desvenlafaxine succinate ER 25 MG 24 hour tablet Take 1 tablet by mouth Daily 4 Active hyoscyamine (Anaspaz,Levsin) 0.125 MG tablet TAKE 1 TABLET BY MOUTH EVERY 6 HOURS NEEDED FOR ABDOMINAL PAIN 4 Active ondansetron ODT (Zofran-ODT) 4 MG disintegrating tablet DISSOLVE 1 TABLET ON THE TONGUE EVERY 6 HOURS NEEDED FOR NAUSEA AND VOMITING 06/05/202 4 Active Active Problems Problem Noted Date Diagnosed Date DNS (deviated nasal septum) 10/14/2022 Anxiety 10/06/2022 Chronic ethmoidal sinusitis 10/06/2022 Chronic pansinusitis 10/06/2022 Hypercholesterolemia 10/06/2022 Hypertension 10/06/2022 Encounters Date Type Department Care Team Description 07/04/2024 3:40 PM EDT Office Visit [facility] [address] [place] [address] Meghan Ramirez, SEPTIC CLEANER-MILITARY TECHNICIAN Melanocytic nevus of upper extremity, unspecified laterality (Primary Dx); Melanocytic nevus of trunk; Seborrheic keratosis; Capillary angioma; Actinic keratosis 07/04/2024 Bamboo flowsheet [facility] [address] [place] [address] Meghan Ramirez APRN-LIZ 07/04/2024 Travel from Last 3 Months Family History Medical History Relation Name Comments Prostate cancer Father Multiple myeloma Mother Cervical cancer Sister Diabetes type I Son Relation Name Status Comments Father Mother Sister Son Social History Tobacco Use Types Packs/Day Years Used Date Smoking Tobacco: Never Smokeless Tobacco: Never Alcohol Use Standard Drinks/Week Comments Not Currently 0 (1 standard drink = 0.6 oz pure alcohol) caffeine intake: 1-2 cups per day AUDIT-C Answer Date Recorded Q1: How often [...] on file Sexual Orientation Not on file Last Filed Vital Signs Vital Sign Reading Time Taken Comments Blood Pressure 128/76 08/24/2023 6:33 AM EDT Pulse 72 08/24/2023 6:33 AM EDT Temperature - - Respiratory Rate - - Oxygen Saturation - - Inhaled Oxygen Concentration - - Weight 96.6 kg (213 lb) 08/24/2023 6:33 AM EDT Height 177.8 cm (5' 10 ) 08/24/2023 6:33 AM EDT Body Mass Index 30.56 08/24/2023 6:33 AM EDT Plan of Treatment Upcoming Encounters Date Type Department Care Team (Late st Contact Info) Description 08/29/2024 8:00 AM EDT Office Visit [facility] [address] [address] Laila Nolasco, UI APPLICATION DEVELOPER [address] [place] [address] 07/05/2025 3:35 PM EDT Office Visit [facility] [address] [place] [address] Meghan Ramirez APRN-MILITARY TECHNICIAN [address] [place] [address] Health Maintenance Due Date Last Done Comments CT Colonography 1965 FIT-DNA 1965 FIT 1965 FOBT 1965 Sigmoidoscopy 1965 Pap Smear 1987 Mammogram 04/29/2024 04/30/2023, 08/18/2021 Cervical Cancer Screening 08/09/2024 HPV/Cotest 08/09/2024 08/10/2019 Influenza Vaccine (Season Ended) 2024 Colonoscopy 03/01/2028 03/01/2018 Colorectal Cancer Screening 03/01/2028 Procedures Procedure Name Priority Date/Time Associated Diagnosis Comments CRYOTHERAPY SKIN LESION Routine 07/04/2024 3:48 PM EDT Actinic keratosis MAMMO 3D,BILATERAL SCREENING MAMMOGRAM WITH TOMOSY Routine 04/30/2023 12:14 PM EST HISTORIC PAP WITH HPV RESULT Routine 08/10/2019 12:00 PM EDT from Last 3 Months or Most Recently Relevant to Health Maintenance Results * Cryotherapy, skin lesion (07/04/2024 3:48 PM EDT) us Meghan Ramirez SEPTIC CLEANER-MILITARY TECHNICIAN DERM PROCEDURE ORDERAB LES Final Result * MAMMO 3D,BILATERAL SCREENING MAMMOGRAM WITH TOMOSY (04/30/2023 12:14 PM EST) Anatomical Region Laterality Modality Radiographic Arabella ging Laila Nolasco NP IMG XR PROCEDURES Final R esult * HISTORIC PAP WITH HPV RESULT (08/10/2019 12:00 PM EDT) GENERIC LEGACY COMPONENT INTERNAL NEGATIVE FOR INTRAEPITHELIAL LESION OR MALIGNANCY. CELLULAR CHANGES ASSOCIATED WITH ATROPHY ARE PRESENT. [facility] GENERIC LEGACY COMPONENT INTERNAL Negative. [facility] 08/10/2019 12:0 0 PM EDT Laila Nolasco NP [facility] Final Res ult Performing Organization Address City/State/[facility] Co de Phone Number [facility] from Last 3 Months or Most Recently Relevant to Health Maintenance Insurance [address] [place] [phone] [employer] Care Teams Paper Finisher Relationship Specialty Start Date End Date Ulysses Barger DO PCP - General Internal Medicine 07/16/22 Meghan Ramirez, SEPTIC CLEANER-MILITARY TECHNICIAN [address] [place] [address] PCP - Medical [place] [employer] 08/29/13 02/28/99
--- OUTSIDE RECORDS SUMMARY | 2024-08-08 14:54 | XMS_ITS | Encounter Summary ---
Author Organization [facility] Address [address] [place] [address] Care Team Providers Care Architecture Intern Name Role Phone Ulysses Barger Primary Care Provider [phone] Meghan Ramirez APRN-ICE PLANT OPERATOR Unavailable [phone] Encounter Details Date Type Department Care Team (Late Contact Info) Description 09/06/2023 Orders Only [facility] [address] [address] Laila Nolasco, RIPSAW MATCHER [address] [place] [address] Social History Tobacco Use Types Packs/Day Years [...] EDT Office Visit [facility] [address] [phone] Laila Nolasco NP [address] [place] [address] 07/05/2025 3:35 PM EDT Office Visit [facility] [address] [place] [phone] Meghan Ramirez APRN-ICE PLANT OPERATOR [address] [place] [address] documented as of this encounter Procedures Procedure Name Priority Date/Time Associated Diagnosis Comments MAMMO 3D,BILATERAL SCREENING MAMMOGRAM WITH TOMOSY Routine 04/30/2023 12:14 PM EST documented in this encounter Results * MAMMO 3D,BILATERAL SCREENING MAMMOGRAM WITH TOMOSY (04/30/2023 12:14 PM EST) Anatomical Region Laterality Modality Radiographic Arabella ging us Laila Nolasco RIPSAW MATCHER IMG XR PROCEDURES Final R esult documented in this encounter Visit Diagnoses Not on filedocumented in this encounter Care Teams Architecture Intern Relationship Specialty Start Date End Date Ulysses Barger DO PCP - General Internal Medicine 07/16/22 Meghan Ramirez, LAUREN-ICE PLANT OPERATOR [address] [place] [address] PCP - Medical [place] [employer] 08/29/13 02/28/99 documented as of this encounter
--- NOTE | 2024-08-08 15:15 | MM_ITS ---
Patient Name: SIERRA GONZALES MR#: [id number] : 1965 Exam Date: 08/08/2024 Ordering Doctor: IAN KING RADIOLOGY REPORT PROCEDURE: MM TOMOSYNTHESIS SCREENING BI COMPARISON: MM TOMOSYNTHESIS SCREENING BI, 04/30/2023. MG MAMM SCREEN 3D GUSTAVO CAD, 03/16/2022. MG MAMM SCREEN 3D GUSTAVO CAD, 10/09/2020. MG MAMM GUSTAVO SCRN W CAD DIG, 08/30/2012. INDICATIONS: Screening Calculator Name NCI Breast Cancer Risk Assessment Tool 5 Year Breast Cancer Risk 1.50% Lifetime Breast Cancer Risk 8.50% Personal Breast Cancer No Personal Ovarian Cancer No Treatments None Family Cancers Mother with multiple myel. cancer at age 76; Father with prostate cancer at age 72; Sister with cervical cancer at age ~28. LOCATION: [facility] BREAST COMPOSITION: There are scattered areas of fibroglandular density. FINDINGS: DIAGNOSTIC CATEGORY 1--NEGATIVE. RIGHT BREAST: No significant suspicious finding. LEFT BREAST: No significant suspicious finding. RECOMMENDATIONS: ROUTINE MAMMOGRAM AND CLINICAL EVALUATION IN 12 MONTHS. PLEASE NOTE: A NORMAL MAMMOGRAM DOES NOT EXCLUDE THE POSSIBILITY OF BREAST CANCER. A CLINICALLY SUSPICIOUS PALPABLE LUMP SHOULD BE BIOPSIED. Dictated by: Nicholas Coreas DO on 08/08/2024 at 15:51 Approved by: Nicholas Coreas DO on 08/08/2024 at 15:53
== END 2024-08-08 14:52 | disposition home or self-care (01) ==
LOC: MAMMO 14:51
PROVIDERS: PCP Internal Medicine; Visit Provider Nurse Practitioner Family
DX: Z12.31 Encounter for screening mammogram for malignant neoplasm of breast (principal); Z80.7 Family history of other malignant neoplasms of lymphoid, hematopoietic and related tissues; Z80.42 Family history of malignant neoplasm of prostate; Z80.8 Family history of malignant neoplasm of other organs or systems
CPT/HCPCS: 77063; 77067